=== PATIENT | female | born 1975 | race Caucasian/White ===

== ENCOUNTER 2016-12-12 05:22 | Inpatient (IN) | payer MEDICARE, OTHER ==
--- NOTE | ~2016-12-12 | CT4 ---
[facility] A Service of [facility] RADIOLOGY TEXT RESULTS PATIENT: ALONDRA HADDAD LOCATION: [facility] 6 : [birth year] UNIT #: [id number] AGE: [address]: Zachariah Hector MD SEX: F ORDER DR: [id number] [facility] [address]. [place], [place] [address] [id number] I MR#: [id number] Acc #: [id number] NAME: ALONDRA HADDAD : 1975 SEX: F STUDY DATE/TIME: 12/12/2016 11:26 UNIT: [facility] ROOM: [facility] STUDY DESCRIPTION: CT Abd and Pelv Wo Cont Attending Physician: Zachariah Hector M.D. Ordering Physician: Zachariah Hector M.D. Primary Care Physician: No Primary Care Physician MEDICAL IMAGING REPORT This report is preliminary unless electronic signature is present EXAM CT abdomen and pelvis. INDICATION Right-sided abdominal pain. Blood in urine. TECHNIQUE CT of the abdomen and pelvis without contrast. Coronal and sagittal reconstructions were obtained. This CT exam was performed with one or more of the following radiation dose reduction techniques: automatic exposure control, adjustment of mA and/or kV according to patient size, and iterative reconstruction. COMPARISON CT abdomen and pelvis dated 06/10/2016. FINDINGS There is some atelectasis in both lung bases. Please correlate for any evidence of a pneumonia. There is no pleural effusion. There are nonobstructing right renal calculi measuring less than 4 mm in diameter. There is severe bilateral renal atrophy. No hydronephrosis or ureteral calculi. There is a benign cyst in the superior left kidney measuring 2.2 cm. Noncontrast evaluation of the remaining solid abdominal organs are within normal limits. The gallbladder is not distended. The bowel is not dilated. The abdominal aorta is normal in caliber. PELVIS: There is trace free pelvic fluid. Bladder is unremarkable. The [facility] A Service of [facility] RADIOLOGY TEXT RESULTS PATIENT: ALONDRA HADDAD LOCATION: [facility] 566-01 : [birth year] UNIT #: [id number] AGE: [address]: Zachariah Hector MD SEX: F ORDER DR: uterus is surgically absent. The ovaries are not clearly identified and may be either atrophic or surgically absent. No enlarged pelvic or inguinal lymph nodes. No acute osseous abnormalities. IMPRESSION 1. Right nephrolithiasis. No hydronephrosis or ureteral calculi. 2. Severe bilateral renal atrophy. 3. Development of bibasilar airspace opacities, most consistent with atelectasis, however, correlate for any evidence of pneumonia. 4. Renal osteodystrophy. 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 This results in focal levoscoliosis of the lumbar spine. Dictated by... Luis Zarco M.D. THIS IS AN ELECTRONICALLY VERIFIED REPORT Luis Zarco M.D. at 12/13/2016 8:00 AM DIMAS/leonel TD: 12/12/2016 17:01 JOB #: [id number] MEDICAL IMAGING REPORT COPY
--- NOTE | ~2016-12-12 | EKG ---
PATIENT: ALONDRA HADDAD UNIT #: [id number] Ventricular Rate: 76 BPM Atrial Rate: 76 BPM P-R Interval: 134 ms QRS Duration: 98 ms Q-T Interval: 438 ms QTC Calculation(Bezet): 492 ms P Friendship: 32 degrees Calculated R Friendship: 7 degrees Calculated T Friendship: 102 degrees Diagnosis Line: Normal sinus rhythm Diagnosis Line: Left ventricular hypertrophy with repolarization Diagnosis Line: abnormality Diagnosis Line: Prolonged QT Diagnosis Line: Abnormal ECG Diagnosis Line: When compared with ECG of 23-NOV-2016 03:49, Diagnosis Line: T wave inversion now evident in Anterior leads Diagnosis Line: Confirmed by OLGA JACOBSEN MD ([id number]) on 12/13/2016 Diagnosis Line: 6:00:40 PM INTERPRETING MD: DELMAR REMY
--- NOTE | ~2016-12-12 | CO ---
Unit #: [id number] #: [id number] Patient: ALONDRA HADDAD [id number] [address] [place], [place] [address] [id number] I MR#: [id number] NAME: ALONDRA HADDAD ROOM: 59144 Age: 41 Sex: F Admission Date: 12/12/2016 : 1975 Attending Physician: Zachariah Hector M.D. Primary Care Physician: No Primary Care Physician Consultation Date: 12/12/2016 CONSULTATION REPORT REASON FOR CONSULTATION Chest pain. HISTORY OF PRESENT ILLNESS The patient is a 41-year-old female known to [facility] from previous admissions. In January of 2016 the patient had a left heart cath that was normal at [facility]. In April of 2016 she did have a Lexiscan that showed small anterolateral ischemia but was likely breast artifact. Also in April of 2016, she did have an echocardiogram, which showed grade 2 diastolic dysfunction, moderate LVH and an EF of 65%. The patient's most recent echo was done on November 14, 2016 and showed an EF of 55% to 60%, moderate LVH and grade 1 diastolic dysfunction. Please note the patient was previously admitted to the hospital November 13, 2016 through November 15, 2016 for hypertension, bronchitis and her endstage renal disease. Past medical history includes endstage renal disease, on hemodialysis secondary to thrombotic thrombocytopenic purpura, hypertension, migraines, anemia, GERD, hiatal hernia, degenerative disk disease, murmur and tobaccoism. Patient presented to the ER with complaints of shortness of air, chest pain and fatigue. The patient states that ever since her hospitalization back in October of 2016 she has felt ill. She states that she felt she was getting worse. She did describe to me that she does have intermittent chest pain that will last 5-10 minutes and will radiate down her left arm. She says she does have some sweats. She also does endorse fever and chills. She also states that sometimes her chest pain is worse with a deep breath. While in the emergency department, the patient has been treated with triple antibiotic therapy for healthcare-associated pneumonia. Her initial troponin was less than 0.05. EKG is essentially unremarkable. Again, cardiology has been consulted for chest pain. PAST MEDICAL HISTORY 1. January 2016, the patient had a normal cardiac catheterization. 2. April 2016, small anterolateral ischemia, likely breast artifact. 3. April 2016, two-D echo showed an EF of 65%, LVH and grade 2 diastolic dysfunction. 4. November 14, 2016, echo showed an EF of 55% to 60%, moderate concentric LVH and grade 1 diastolic dysfunction. 5. Endstage renal disease, on hemodialysis, secondary to thrombotic thrombocytopenic purpura. Unit #: [id number] #: [id number] Patient: ALONDRA HADDAD 6. Hypertension. 7. Migraines. 8. Anemia. 9. GERD. 10. Hiatal hernia. 11. Degenerative disk disease. 12. Tobaccoism. 13. Murmur. PAST SURGICAL HISTORY 1. Surgery for intracranial colloid cyst. 2. Appendectomy. 3. Tonsillectomy. 4. Cholecystectomy. 5. ROXANE-BSO. 6. Multiple left arm surgeries following a fistula, which apparently became nonfunctional. 7. Myringotomy tubes. ALLERGIES Morphine, codeine, IV dye, vancomycin, sulfa, GoLYTELY. HOME MEDICATIONS 1. Benadryl 25 mg p.o. t.i.d. p.r.n. 2. Phenergan 25 mg p.o. q.6 hours p.r.n. 3. Klonopin 1 mg p.o. t.i.d. p.r.n. 4. Coreg 6.25 mg p.o. b.i.d. 5. Catapres 0.2 mg p.o. t.i.d. 6. Hydralazine 50 mg p.o. t.i.d. 7. Reglan 5 mg p.o. t.i.d. 8. Sensipar 30 mg p.o. daily. 9. Lortab 7.5/325 mg 1 tab p.o. q.6 hours p.r.n. pain. 10. Renvela 4 tabs p.o. t.i.d. with meals and p.r.n. 2 tabs. 11. Pepcid 20 mg p.o. b.i.d. FAMILY HISTORY Positive for coronary artery disease, endstage renal failure and hypertension. She states that her father had an NC at the age of 49. SOCIAL HISTORY The patient does endorse tobaccoism that she does smoke 1-2 cigarettes daily and rarely drinks alcohol. She denies any illicit drug use. REVIEW OF SYSTEMS CONSTITUTIONAL: The patient endorses fever, chills and fatigue. HEENT: The patient denies sore throat, ear pain or runny nose. CARDIOVASCULAR: The patient endorses chest pain. Denies irregular rhythm or palpitations. CHEST: The patient endorses shortness of breath. Denies cough or hemoptysis. GI: Denies nausea, vomiting, diarrhea, chronic constipation or hematochezia. ENDOCRINE: The patient denies history of increased thirst or urination. No recent significant weight loss or gain. : Denies dysuria, frequency or hematuria. SKIN: Denies any rashes or lesions. HEMATOLOGIC: Denies any increased bleeding or bruising. MUSCULOSKELETAL: Denies any hot swollen joints. No generalized muscle Unit #: [id number] #: [id number] Patient: STEIMLE,ALONDRA pain. NEUROLOGIC: Denies problems with speech or vision. No frequent severe headache. No numbness, tingling or weakness in any extremity. Denies loss of bowel or bladder control. PHYSICAL EXAMINATION GENERAL: The patient is a 41-year-old female who is currently awake, alert, in no acute distress. VITAL SIGNS: Temperature 98.6, heart rate 75, respirations 16, blood pressure 149/94. HEENT: Head is atraumatic, normocephalic. Pupils are equal, round and reactive. She does have a dysconjugate gaze. No discharge from ears or nares. NECK: Supple. Trachea is midline. Normal carotid upstrokes. CHEST: The patient does have some scattered rhonchi. CARDIOVASCULAR: S1, S2. Regular rate and rhythm. The patient does have a 2/6 systolic murmur. ABDOMEN: Abdomen is soft, nontender, nondistended. Bowel sounds are positive in all 4 quadrants. EXTREMITIES: No clubbing, edema or cyanosis. The patient does have shunts in her left and right upper arms. Right upper arm has positive bruit and thrill. NEUROLOGIC: The patient is alert and oriented x3. She is pleasant and conversant. No focal deficits. Cranial nerves II-XII are intact. DIAGNOSTIC STUDIES LABORATORY RESULTS: Urinalysis shows trace leukocytes and 2+ protein. Sodium 133, potassium 5.9, chloride 99, CO2 20, BUN 68, creatinine 14.9, glucose 94. CBC is pending. Troponin is less than 0.05. Lactic acid and procalcitonin are pending. ASSESSMENT 1. Chest pain, likely atypical with normal coronary in January of 2016. 2. Chronic diastolic CHF with LVEF of 55% to 60%. 3. Systolic murmur. 4. HCAP. Cover gram-positive, gram-negative. 5. Endstage renal disease, on hemodialysis secondary to TTP. 6. Hypertension. 7. Hyperkalemia. 8. Anemia. 9. GERD. 10. Tobaccoism. PLAN I have discussed this case with Dr. Atwood, and at this time we will trend troponin and cardiac enzymes. We will repeat this one more time. Will check an EKG in the a.m. We will also check a TSH and a lipid panel in the morning. Will ask for the patient's two-D echocardiogram from October 2016 to be placed on the chart. At this time will monitor closely. Dr. Atwood is to see the patient. Dictated by... Alejandra Hamilton A.P.R.N. for Scott Atwood M.D. AM/db Unit #: [id number] #: [id number] Patient: ALONDRA HADDAD TD: 12/12/2016 11:53 JOB #: [id number] CONSULTATION REPORT X Alejandra Hamilton APRN X CONSULTATION REPORT
--- NOTE | ~2016-12-12 | CR63 ---
[facility] A Service of [facility] RADIOLOGY TEXT RESULTS PATIENT: ALONDRA HADDAD LOCATION: [facility] [id number] : [birth year] UNIT #: [id number] AGE: [address]: Zachariah Hector MD SEX: F ORDER DR: [id number] [facility] [address] [place], [place] [address] [id number] I MR#: [id number] #: [id number] NAME: ALONDRA HADDAD : 1975 SEX: F STUDY DATE/TIME: 12/12/2016 5:57 UNIT: [facility] ROOM: 45877 STUDY DESCRIPTION: CR Chest 2 View Attending Physician: Zachariah Hector M.D. Ordering Physician: George Cortez Aprn Primary Care Physician: No Primary Care Physician MEDICAL IMAGING REPORT This report is preliminary unless electronic signature is present EXAM Chest x-ray, 12/12. INDICATION Midsternal chest pain since 1:00 a.m. this morning. Left flank pain for 2 days. FINDINGS 2 views of the chest compared to 11/23/2016. Cardiomegaly is stable. There is atelectasis or infiltrate in both bases, left greater than right, and there is a small left effusion. No pneumothorax. IMPRESSION Stable cardiomegaly with new infiltrate or atelectasis in the bases, left greater than right, and a small volume of left pleural fluid. Dictated by... Young Wilson Jr., M.D. THIS IS AN ELECTRONICALLY VERIFIED REPORT Young Wilson Jr., M.D. at 12/12/2016 2:27 PM REZA/leonel TD: 12/12/2016 11:42 JOB #: [id number] MEDICAL IMAGING REPORT COPY
--- NOTE | ~2016-12-12 | HP ---
Unit #: [id number] #: [id number] Patient: ALONDRA HADDAD [id number] [address] [place], [place] [address] [id number] I MR#: [id number] NAME: ALONDRA HADDAD ROOM: 98597 Age: 41 Sex: F Admission Date: 12/12/2016 : 1975 Attending Physician: Zachariah Hector M.D. Primary Care Physician: No Primary Care Physician HISTORY AND PHYSICAL CHIEF COMPLAINT Chest pain and cough and abdominal pain. Kindly note - she mentioned chest pain and cough to the ER physicians and mentioned in the ER note but when I went inside the first thing she complains of is abdominal pain which is bothering her. HISTORY OF PRESENTING ILLNESS The patient is a 41-year-old lady with a past medical history of end stage renal disease on dialysis, hypertension, history of dilated cardiomyopathy, congestive heart failure, presented to the emergency room with a chief complaint of chest pain and abdominal pain. She mentions that she is having cough with production of sputum, greenish color. She mentions she had a couple of sick contacts around. She does not recall if she got her flu shot or not. On (1) coughing, she complains of having chest tightness and also having abdominal pains which started yesterday. Denies having any fevers noted at home. Denies any nausea, vomiting or diarrhea. Denies any change in her medications. She gets dialysis Sunday, Sunday, Sunday and Dr. Parker is her garde manger. In the emergency room, she had initial cardiac enzymes which were negative. Chest x-ray was concerning for infiltrate. She was started on antimicrobials and admitted for further care. PAST MEDICAL HISTORY 1. History of hypertension. 2. End stage renal disease, on dialysis. 3. Cardiac disease including dilated cardiomyopathy per the patient. 4. Remote PE. 5. Cardiac cath at [facility] in January 2006 which showed normal coronary arteries. 6. History of GERD. 7. History of migraine. 8. History of pulmonary hypertension. PAST SURGICAL HISTORY 1. Appendectomy. 2. Tonsillectomy. 3. Cholecystectomy. 4. Total abdominal hysterectomy. 5. Bilateral salpingo-oophorectomy. 6. Multiple surgeries for fistula placement. ALLERGIES Unit #: [id number] #: [id number] Patient: ALONDRA HADDAD Morphine, codeine, IV dye, sulfa, SIDDHARTHA, Stadol. HOME MEDICATIONS 1. Hydralazine 50 mg p.o. three times a day. 2. Reglan 5 mg p.o. three times a day. 3. Sensipar 30 mg p.o. daily. 4. Lortab 7.5/325, one tab p.o. q.6. 5. Renvela four tabs p.o. three times a day. 6. Benadryl 25 mg three times a day. 7. Phenergan 25 q.6 p.r.n. 8. Klonopin 1 mg p.o. three times a day. 9. Coreg 6.25 mg twice a day. 10. Catapres 0.2 mg p.o. three times a day. 11. Pepcid 20 mg twice a day. SOCIAL HISTORY Denies smoking, alcohol, illicit drugs. REVIEW OF SYSTEMS Complete review of systems was done. Negative except for what is mentioned in the HPI. FAMILY HISTORY Coronary artery disease, ESRD and hypertension. PHYSICAL EXAMINATION VITAL SIGNS: Temperature 98.6, pulse rate 72, respiratory rate 20, blood pressure 145/94. GENERAL: The patient is alert and oriented x3, lying in the bed, in no acute distress. HEENT: Normocephalic, atraumatic. No icterus. PERRLA. Extraocular movements intact. NECK: Supple. No JVD. HEART: S1, S2. Regular rate and rhythm. CHEST: Bilateral equal air entry. Bibasilar rhonchi. ABDOMEN: Soft, diffusely tender. Bowel sounds positive. EXTREMITIES: No edema, normal pulses. DIAGNOSTIC STUDIES LABORATORY: Glucose 94, BUN 68, creatinine 14.9, sodium 133, potassium 5.9, chloride 99, bicarb 20. WBC 7.5, hemoglobin 10, platelets 156. IMAGING: Chest x-ray - official reading. Mild plate-like atelectasis both lower lung aguirre. Stable cardiomegaly. No new focal areas of consolidation are seen. ASSESSMENT AND PLAN 1. Chest pain: She does have multiple cardiac risk factors including hypertension and history of documented coronary artery disease. She was a former smoker. Will check serial cardiac enzymes, give her aspirin and nitro and will monitor. If required, will consider cardiac evaluation. 2. Abdominal pain: Will get a CT of the abdomen without contrast and go from there. Will give her p.r.n. analgesics at this point. 3. Pneumonia: Official chest x-ray reading is negative for any infiltrates. Her white cell counts are 7.5. I doubt a pneumonia Unit #: [id number] #: [id number] Patient: ALONDRA HADDAD but, because of the complaint of cough with green sputum, she is started on antimicrobials. Will check a procalcitonin level and, if the procalcitonin level is low, consider stopping the antimicrobials. 4. End stage renal disease, on hemodialysis: Will consult nephrology team to help with dialysis. Kindly note, her potassium is elevated. 5. Hypertension: Continue her home medications and monitor. 6. DVT precautions. Further recommendations per hospital course. Dictated by Jarvis Ivey TD: 12/12/2016 10:47 JOB #: [id number] HISTORY AND PHYSICAL X X HISTORY AND PHYSICAL
--- NOTE | ~2016-12-12 | EKG ---
PATIENT: ALONDRA HADDAD UNIT #: [id number] Ventricular Rate: 70 BPM Atrial Rate: 70 BPM P-R Interval: 146 ms QRS Duration: 100 ms Q-T Interval: 466 ms QTC Calculation(Bezet): 503 ms P Channing: 25 degrees Calculated R Channing: -2 degrees Calculated T Channing: 118 degrees Diagnosis Line: Normal sinus rhythm Diagnosis Line: Moderate voltage criteria for LVH, may be normal Diagnosis Line: variant Diagnosis Line: ST and T wave abnormality, consider lateral ischemia Diagnosis Line: Prolonged QT Diagnosis Line: Abnormal ECG Diagnosis Line: When compared with ECG of 12-DEC-2016 02:07, Diagnosis Line: (unconfirmed) Diagnosis Line: T wave inversion no longer evident in Anterior Diagnosis Line: leads Diagnosis Line: Confirmed by OLGA JACOBSEN MD ([id number]) on 12/13/2016 Diagnosis Line: 6:17:01 PM INTERPRETING MD: DELMAR REMY
--- NOTE | ~2016-12-12 | DS ---
Unit #: [id number] #: [id number] Patient: ALONDRA HADDAD [id number] [address] [place], [place] [address] [id number] I MR#: [id number] NAME: ALONDRA HADDAD ROOM: 566 Age: 41 Sex: F Admission Date: 12/12/2016 : 1975 Discharge Date: 12/14/2016 Attending Physician: Zachariah Hector M.D. Primary Care Physician: Jena Primary Care Physician DISCHARGE SUMMARY CONSULTANTS 1. Dr. Jonathon Messer. 2. Dr. Candido Gentile. CHIEF COMPLAINT Chest pain and abdominal pain. ADMITTING DIAGNOSES 1. Possible healthcare-associated pneumonia. 2. End stage renal disease. 3. Hemodialysis. 4. Chest pain. 5. Abdominal pain. For the diagnosis of chest pain, it is pleuritic in nature. No healthcare-associated pneumonia, for further workup. HISTORY OF PRESENTING ILLNESS The patient is a 41-year-old lady with a past medical history of ESRD and hemodialysis, hypertension, history of dilated cardiomyopathy, congestive heart failure, presented to the emergency room with a chief complaint of chest and abdominal pains. HOSPITAL COURSE She had two sets of cardiac enzymes which were negative. She was seen by cardiology. Cardiology opined that the chest pain is pleuritic in nature and no further workup is warranted at this point. She was started on antimicrobials initially for possible healthcare-associated pneumonia. Her procalcitonin was low. The chest x-ray was suggestive of atelectasis as well as a CT of the abdomen which was showing possible atelectasis on the imaging. Her antimicrobials were stopped. For end stage renal disease, Dr. Messer was consulted. He started her on hemodialysis and she did well on the hemodialysis. For the abdominal pain, we got a CT of the abdomen done which did not show any obvious pathology. She is doing clinically better. She is discharged home in a stable condition. She has been instructed to follow with her primary care as an outpatient. On the day of discharge, her physical examination: VITAL SIGNS - temperature 98.3, pulse rate 80, respiratory rate 18, blood pressure 153/109. The patient is alert and oriented x3, lying in the bed, in no Unit #: [id number] #: [id number] Patient: ALONDRA HADDAD acute distress. HEENT - normocephalic, atraumatic. No icterus. PERRLA. Extraocular muscles intact. NECK is supple. No JVD. HEART - S1, S2. Regular rate and rhythm. CHEST - bilateral equal air entry, clear to auscultation. ABDOMEN - soft, nontender. EXTREMITIES - no edema. Normal pulses. DISCHARGE MEDICATIONS Include: 1. Benadryl 25 mg p.o. three times a day. 2. Phenergan 25 mg q.6 p.r.n. nausea. 3. Klonopin 1 mg p.o. t.i.d. for anxiety. 4. Coreg 6.25 mg p.o. twice a day. 5. Clonidine 0.2 mg p.o. three times a day. 6. Hydralazine 50 mg p.o. three times a day. 7. Pepcid 20 mg twice a day. 8. Reglan 5 mg p.o. three times a day. 9. Sensipar 30 mg p.o. daily. 10. Lortab 7.5/325, one tablet p.o. q.6 p.r.n. for pain. Kindly note - we are not giving any new prescriptions. She will be taking the medications from her primary care. 11. Renagel 3200 mg p.o. three times a day. She was instructed to follow with her primary care in one to two weeks. All the discharge instructions explained in detail to the patient. Total time spent in her care - 35 minutes. Dictated by... Jarvis Ivey/ariela TD: 12/15/2016 10:42 JOB #: [id number] DISCHARGE SUMMARY X X DISCHARGE SUMMARY
[~2016-12-12 05:22] MED LIST: ACETAMINOPHEN500 M7 PO; BENADRYL25 MG PO; BENTYL20 MG PO; CATAPRES0.1 M1 PO; CATAPRES0.3 MG PO; CLARITIN10 M3 PO; CLONIDINE PO; COREG PO; COREG3.125 M1 PO; COREG6.25 MG PO; DIPHENHYDRAMINE50 M1 PO; DOCU SOFT100 M1 PO; EPOGEN10000 U/ML INJ; FAMOTIDINE20 M1 PO; HYDRALAZINE HC100 MG PO; HYDRALAZINE HCL50 MG PO; HYDROCODON-ACE1 EAC5 PO; HYDROCODONE/APA1 T16 PO; KLONOPIN0.5 M2 PO; KLONOPIN0.5 MG PO; LEVAQUIN PO; LEVAQUIN250 MG PO; LISINOPRIL10 MG PO; LOTREL 10-40 M1 EACH PO; METOCLOPRAMIDE H5 MG PO; METOPROLOL SUC100 MG PO; NEXIUM PO; NICOTINE TRANSD21 MG EXT; NORCO1 TAB 10/3 PO; NORVASC10 MG PO; PANTOPRAZOLE SO20 MG PO; PAROXETINE HCL10 MG PO; PEPCID AC20 M2 PO; PHENERGAN25 MG PO; PROMETHAZINE12.5 MG PO; PROTONIX PO; REGLAN10 MG PO; RENAGEL800 MG PO; RENVELA800 MG PO; SENSIPAR30 M1 PO; VITAMIN D1000 UNI1 PO; ZOFRAN ODT4 MG PO; [UNRECOGNIZED DRUG - CODE] IJ
[2016-12-12 06:19] LABS: POC - CKMB <1.0 ng/mL (0.0-7.9); POC - TROPONIN <0.05 ng/mL (<=0.05)
[2016-12-12 07:14] LABS: URINE SOURCE CATH
[2016-12-12 07:21] LABS: URINE APPEARANCE CLEAR; URINE BILIRUBIN NEG (NEG); URINE BLOOD NEG (NEG); URINE COLOR YELLOW; URINE GLUCOSE NEG (NEG); URINE KETONE NEG (NEG); URINE LEUKOCYTE ESTERASE TRACE (NEG); URINE NITRATE NEG (NEG); URINE PH 7.5 (5-8); URINE PROTEIN 2+ (NEG); URINE SPECIFIC GRAVITY 1.011 (1.003-1.035); URINE UROBILINOGEN 0.2 MG/DL (NEG)
[2016-12-12 07:24] LABS: CULTURE INDICATED? NO; URBCS1 AUWI 0-2 /[HPF] (0-2); URINE BACTERIA AUWI NEG (NEGATIVE); URINE SQUAMOUS EPITHELIAL CELL NONE SEEN /[HPF]
[2016-12-12] MEDS ORDERED: BENADRYL25 M3 PO (08:05)
[2016-12-12] MEDS ORDERED: KLONOPIN1 MG PO (08:06)
[2016-12-12] MEDS ORDERED: PHENERGAN25 M1 PO (08:06)
[2016-12-12] MEDS ORDERED: COREG6.25 M1 PO (08:06)
[2016-12-12] MEDS ORDERED: CLONIDINE PO (08:07)
[2016-12-12] MEDS ORDERED: LORTAB 7.5-3251 EACH PO (08:08)
[2016-12-12] MEDS ORDERED: SENSIPAR30 M1 PO (08:08)
[2016-12-12] MEDS ORDERED: HYDRALAZINE HCL50 MG PO (08:08)
[2016-12-12] MEDS ORDERED: REGLAN5 MG PO (08:08)
[2016-12-12] MEDS ORDERED: PEPCID AC20 M2 PO (08:10)
[2016-12-12] MEDS ORDERED: RENVELA800 MG PO (08:10)
[2016-12-12 08:14] LABS: ALBUMIN SERUM 3.7 g/dL (3.5-5.0); BILIRUBIN, DIRECT 0.1 mg/dL (0.0-0.2); BILIRUBIN,INDIRECT 0.6 mg/dL (0.0-0.9); BILIRUBIN,TOTAL 0.7 mg/dL (0.2-2.0); BUN/CREATININE RATIO 4.56; CREATININE SERUM 14.9 mg/dL (0.6-1.4); GLOM FILT RATE Estimated 2.9 mL/min (>60)
[2016-12-12 08:23] LABS: POTASSIUM 5.9 mmol/L (3.5-5.1)
[2016-12-12 11:13] LABS: BASOPHIL# 0.1 X10e3 (0-0.3); BASOPHIL% 0.8 % (0-2.5); EOSINOPHIL# 0.1 X10e3 (0-0.7); EOSINOPHIL% 1.3 % (0.0-7.0); HEMATOCRIT 37.1 % (35.0-45.0); HEMOGLOBIN 11.8 gm/dL (12.0-16.0); LYMPHOCYTE# 1.1 X10e3 (1.0-3.5); LYMPHOCYTE% 15.4 % (17.0-45.0); MEAN CELL VOLUME 96.3 FL (83-96); MEAN CORPUSCULAR HEMOGLOBIN 30.6 PG (28-34); MEAN CORPUSCULAR HGB CONC 31.7 g/dL (30-36); MEAN PLATELET VOLUME 9.1 FL (6.5-11.5); MONOCYTE# 0.7 X10e3 (0-1.0); MONOCYTE% 9.4 % (3.0-12.0); NEUTROPHIL# 5.2 X10e3 (1.5-7.1); NEUTROPHIL% 73.1 % (40-75); PLATELET COUNT 120 X10e3 (140-420); RED BLOOD COUNT 3.86 X10e (3.90-5.30); RED CELL DISTRIBUTION WIDTH 18.4 % (11.0-15.5); WHITE BLOOD COUNT 7.1 X10e3 (4.0-10.5)
[2016-12-12 11:14] LABS: DIFF IND NO
[2016-12-12 12:38] LABS: MB 1.4 ng/ml
[2016-12-13 06:17] LABS: HEMATOCRIT 39.5 % (35.0-45.0); HEMOGLOBIN 12.8 gm/dL (12.0-16.0); MEAN CELL VOLUME 95.4 FL (83-96); MEAN CORPUSCULAR HEMOGLOBIN 30.9 PG (28-34); MEAN CORPUSCULAR HGB CONC 32.4 g/dL (30-36); MEAN PLATELET VOLUME 8.8 FL (6.5-11.5); RED BLOOD COUNT 4.14 X10e (3.90-5.30); RED CELL DISTRIBUTION WIDTH 18.4 % (11.0-15.5); WHITE BLOOD COUNT 5.3 X10e3 (4.0-10.5)
[2016-12-13 07:20] LABS: BUN/CREATININE RATIO 2.76; GLOM FILT RATE Estimated 6.3 mL/min (>60); POTASSIUM 4.6 mmol/L (3.5-5.1)
[2016-12-13 07:23] LABS: CREATININE SERUM 7.6 mg/dL (0.6-1.4)
[2016-12-14 05:28] LABS: HEMATOCRIT 38.8 % (35.0-45.0); HEMOGLOBIN 12.5 gm/dL (12.0-16.0); MEAN CELL VOLUME 95.6 FL (83-96); MEAN CORPUSCULAR HEMOGLOBIN 30.7 PG (28-34); MEAN CORPUSCULAR HGB CONC 32.1 g/dL (30-36); MEAN PLATELET VOLUME 9.1 FL (6.5-11.5); RED BLOOD COUNT 4.06 X10e (3.90-5.30); RED CELL DISTRIBUTION WIDTH 17.9 % (11.0-15.5); WHITE BLOOD COUNT 5.6 X10e3 (4.0-10.5)
[2016-12-14 06:57] LABS: BUN/CREATININE RATIO 2.81; CREATININE SERUM 6.4 mg/dL (0.6-1.4); GLOM FILT RATE Estimated 7.7 mL/min (>60); POTASSIUM 4.3 mmol/L (3.5-5.1)
== END 2016-12-14 16:47 | disposition home or self-care (01) | DRG 205 ==
LOC: CED 05:22 → CEDOF 07:45 → C5C 15:05
PROVIDERS: Emergency Medicine; Internal Medicine; Internal Medicine Cardiovascular Disease; Nurse Practitioner Family
PROC: 5A1D00Z (ICD-10-PCS; principal; 2016-12-12)
DX: J98.11 Atelectasis (principal); N18.6 End stage renal disease; M31.1 Thrombotic microangiopathy; I13.2 Hypertensive heart and chronic kidney disease with heart failure and with stage 5 chronic kidney disease, or end stage renal disease; E87.2 Acidosis; I42.0 Dilated cardiomyopathy; I50.32 Chronic diastolic (congestive) heart failure; F17.210 Nicotine dependence, cigarettes, uncomplicated; Z99.2 Dependence on renal dialysis; G43.909 Migraine, unspecified, not intractable, without status migrainosus; K21.9 Gastro-esophageal reflux disease without esophagitis; K44.9 Diaphragmatic hernia without obstruction or gangrene; R07.89 Other chest pain; R10.9 Unspecified abdominal pain; E87.5 Hyperkalemia; Z82.49 Family history of ischemic heart disease and other diseases of the circulatory system; Z84.1 Family history of disorders of kidney and ureter; Z88.5 Allergy status to narcotic agent; Z88.2 Allergy status to sulfonamides; Z91.041 Radiographic dye allergy status; I27.2 Other secondary pulmonary hypertension
CPT/HCPCS: 36415; 51701; 71020; 74176; 80048; 80061; 80076; 81003; 82308; 82550; 82553; 83605; 83880; 84443; 84484; 85025; 85027; 87040; 93005; 99285; J0360; J1200; J1956; J2020; J2270; J2405; J2543; J3260

== ENCOUNTER 2017-01-09 18:57 | Inpatient (IN) | payer MEDICARE, OTHER ==
--- NOTE | ~2017-01-09 | NM69 ---
[facility] A Service of [facility] RADIOLOGY TEXT RESULTS PATIENT: ALONDRA HADDAD LOCATION: [facility] 4506-22 : [birth year] UNIT #: [id number] AGE: [address]: Zachariah Hector MD SEX: F ORDER DR: [id number] [facility] [address] [facility]. [place], [place] [address] [id number] I MR#: [id number] Acc #: [id number] NAME: ALONDRA HADDAD : 1975 SEX: F STUDY DATE/TIME: 01/09/2017 22:22 UNIT: C4B ROOM: [facility] STUDY DESCRIPTION: NM Pulm Vent and Perf Attending Physician: Zachariah Hector M.D. Ordering Physician: Aneta Mello M.D. Primary Care Physician: No Primary Care Physician MEDICAL IMAGING REPORT This report is preliminary unless electronic signature is present EXAM Radionuclide ventilation-perfusion lung scan, 01/09/2017 HISTORY A 41-year-old female presenting to the ED this evening with new onset chest pain and shortness of air. She has a reported history of TTP and a past history of pulmonary embolism. DOSE 29 mCi Technetium labeled DTPA inhaled in aerosol. 4.9 mCi Technetium labeled MAA administered intravenously. COMPARISON Ventilation-perfusion lung scan here 08/16/2016. Chest x-ray today. FINDINGS The examination shows a physiologic distribution of tracer throughout both lungs on both perfusion and ventilation images. There is no unmatched perfusion defect to suggest pulmonary embolism. There has been no change since the prior exam. IMPRESSION Normal ventilation-perfusion lung scan. No change since 08/16/2016. Dictated by... Buzz Moy M.D. THIS IS AN ELECTRONICALLY VERIFIED REPORT Buzz Moy M.D. at 01/10/2017 10:05 PM BENITEZW/conchita [facility] A Service of [facility] RADIOLOGY TEXT RESULTS PATIENT: ALONDRA HADDAD LOCATION: [facility] 4506-22 : [birth year] UNIT #: [id number] AGE: [address]: Zachariah Hector MD SEX: F ORDER DR: TD: 01/10/2017 12:45 JOB #: [id number] MEDICAL IMAGING REPORT Page 1 of 1 COPY
--- NOTE | ~2017-01-09 | CR72 ---
[facility] A Service of [facility] & [facility] RADIOLOGY TEXT RESULTS PATIENT: ALONDRA HADDAD LOCATION: [facility]- : [birth year] UNIT #: [id number] AGE: [address]: Zachariah Hector MD SEX: F ORDER DR: [id number] [facility] [address] [place], [place] [address] [id number] I MR#: [id number] Acc #: [id number] NAME: ALONDRA HADDAD : 1975 SEX: F STUDY DATE/TIME: 01/09/2017 20:08 UNIT: [facility] ROOM: [facility] STUDY DESCRIPTION: CR Chest Single View Portable Attending Physician: Zachariah Hector M.D. Ordering Physician: Aneta Mello M.D. Primary Care Physician: Primary Care Physician No MEDICAL IMAGING REPORT This report is preliminary unless electronic signature is present EXAM Chest x-ray portable HISTORY Chest pain. Short of air. Cough FINDINGS A single frontal portable view of the chest, time 20:08 on 01/09/2017 reviewed. Comparison 12/12/2016. Again there is globular cardiac silhouette enlargement which can be a manifestation of dilated cardiomyopathy and/or pericardial effusion. There is some linear air space disease at lung bases unchanged to slightly improved when comparison is made to prior study. There is some improvement in lung volumes. No change in prominence of the vascular markings in general otherwise. No pleural effusion. No pneumothorax. IMPRESSION 1. Again globular cardiomediastinal silhouette enlargement. 2. Redemonstration of linear abnormal parenchymal markings at lung bases. This mild linear air space disease is unchanged to slightly improved with some improvement in lung volumes since prior. No change in the vascular prominence overall. No pleural effusion or pneumothorax. Dictated by... Colette Mcconnell M.D. THIS IS AN ELECTRONICALLY VERIFIED REPORT Colette Mcconnell M.D. at 01/10/2017 12:19 PM CANDIDO/phi [facility] A Service of [facility] & [facility] RADIOLOGY TEXT RESULTS PATIENT: ALONDRA HADDAD LOCATION: [place] [address] : [birth year] UNIT #: [id number] AGE: [address]: Zachariah Hector MD SEX: F ORDER DR: TD: 01/10/2017 11:31 JOB #: [id number] MEDICAL IMAGING REPORT Page 1 of 1 COPY
--- NOTE | ~2017-01-09 | EKG ---
PATIENT: ALONDRA HADDAD UNIT #: [id number] Ventricular Rate: 79 BPM Atrial Rate: 79 BPM P-R Interval: 132 ms QRS Duration: 98 ms Q-T Interval: 434 ms QTC Calculation(Bezet): 497 ms P [place]: 25 degrees Calculated R [place]: -8 degrees Calculated T [place]: 122 degrees Diagnosis Line: Normal sinus rhythm Diagnosis Line: Left ventricular hypertrophy with repolarization Diagnosis Line: abnormality Diagnosis Line: Prolonged QT Diagnosis Line: Abnormal ECG Diagnosis Line: When compared with ECG of 13-DEC-2016 05:47, Diagnosis Line: T wave inversion more evident in Lateral leads Diagnosis Line: Confirmed by ADRIENNE CONTRERAS MD ([id number]) on 01/11/2017 Diagnosis Line: 9:15:31 AM INTERPRETING MD: BEN REMY
--- NOTE | ~2017-01-09 | DS ---
Unit #: [id number] #: [id number] Patient: ALONDRA HADDAD [id number] [address] [place], [place] [address] [id number] I MR#: [id number] NAME: ALONDRA HADDAD ROOM: 45 Age: 41 Sex: F Admission Date: 01/10/2017 : 1975 Discharge Date: 01/14/2017 Attending Physician: Michel Hamilton M.D. Primary Care Physician: Primary Care Physician No DISCHARGE SUMMARY DISCHARGE DIAGNOSES 1. Pyelonephritis. 2. Chronic pain. 3. End-stage renal disease. 4. Hypertension. HOSPITAL COURSE The patient is a 41-year-old female, who presented to the [facility] with a complaint of flank pain. The pain was on the left and was severe. She also complained of significant pyuria and fever. Urinalysis was consistent with urinary tract infection and given her constellation of symptoms, diagnosis of pyelonephritis was made. The patient was initially started on Rocephin, however, cultures have ultimately returned growing ESBL producing E. coli. As a result, the patient's Rocephin was initially changed to Merrem; however, given that the patient cannot receive Merrem at her regularly scheduled dialysis. The patient has been changed to gentamicin with dosing after dialysis per Renal. Given isolation of the organism and resolution of the patient's fever. The patient is being discharged home to continue IV antibiotics and her regularly scheduled dialysis. DISCHARGE MEDICATIONS Benadryl 25 mg p.o. t.i.d. as needed, Phenergan 25 mg p.o. q.6 hours as needed, Klonopin 1 mg p.o. t.i.d. as needed, Coreg 25 mg p.o. b.i.d., Catapres 0.2 mg p.o. t.i.d., hydralazine 50 mg p.o. t.i.d., Pepcid 20 mg p.o. b.i.d., Reglan 5 mg p.o. t.i.d., Sensipar 30 mg daily, Lortab 7.5/325 one p.o. q.6 hours p.r.n., Renvela four tabs p.o. t.i.d. with meals, gentamicin with dialysis as noted above. FOLLOWUP The patient should follow up with her regularly scheduled dialysis. She should see her primary care doctor in 2 weeks. She should follow up with Dr. Messer as needed. Dictated by... Michel Hamilton M.D. CAM/modl Unit #: [id number] #: [id number] Patient: ALONDRA HADDAD TD: 01/15/2017 09:29 JOB #: [id number] DISCHARGE SUMMARY Page 1 of 1 X Michel Hamilton MD X DISCHARGE SUMMARY
--- NOTE | ~2017-01-09 | US77 ---
[facility] RADIOLOGY TEXT RESULTS PATIENT: ALONDRA HADDAD LOCATION: [facility] : [birth year] UNIT #: [id number] AGE: [address]: Zachariah Hector MD SEX: F ORDER DR: [id number] [facility] [address] [place], [place] [address] [id number] I MR#: [id number] Acc #: [id number] NAME: ALONDRA HADDAD : 1975 SEX: F STUDY DATE/TIME: 01/10/2017 8:29 UNIT: C4B ROOM: [facility] STUDY DESCRIPTION: US Kidney Bilateral Complete Attending Physician: Zachariah Hector M.D. Ordering Physician: Sana Jerry M.D. Primary Care Physician: Primary Care Physician No MEDICAL IMAGING REPORT This report is preliminary unless electronic signature is present EXAM Renal ultrasound INDICATION Acute renal failure. BUN 55, creatinine 10.2, GFR 4.5. PROCEDURE Gutierrez-scale and Doppler imaging kidneys and bladder. COMPARISON CT from 12/12/2016 FINDINGS Right kidney poorly defined measuring approximately 8.9 cm. Cortical thinning and diffusely increased echotexture. 2.4 cm cyst in the right kidney. Unremarkable bladder. Left kidney is poorly defined, measures approximately 8.7 cm, has increased echotexture and cortical thinning. There is a 1.7 cm cyst upper pole of the left kidney. No hydronephrosis. The renal calculi in the right kidney on the CT are not well seen on this study. IMPRESSION 1. Renal atrophy and increased echotexture in keeping with changes of chronic renal disease. 2. No hydronephrosis. 3. Bilateral renal cysts. 4. Calculi in the right kidney shown on the recent CT are not clearly seen on this ultrasound. Dictated by... Lit Espinoza M.D. [facility] RADIOLOGY TEXT RESULTS PATIENT: ALONDRA HADDAD LOCATION: [facility] : [birth year] UNIT #: [id number] AGE: [address]: Zachariah Hector MD SEX: F ORDER DR: THIS IS AN ELECTRONICALLY VERIFIED REPORT Lit Espinoza M.D. at 01/12/2017 7:14 AM [place] TD: 01/10/2017 14:40 JOB #: [id number] MEDICAL IMAGING REPORT Page 1 of 1 COPY
--- NOTE | ~2017-01-09 | HP ---
Unit #: [id number] #: [id number] Patient: ALONDRA HADDAD [id number] [address] [place], [place] [address] [id number] I MR#: [id number] NAME: ALONDRA HADDAD ROOM: 45 Age: 41 Sex: F Admission Date: 01/10/2017 : 1975 Attending Physician: Sana Jerry M.D. Primary Care Physician: No Primary Care Physician HISTORY AND PHYSICAL CHIEF COMPLAINT Left-sided pyelonephritis. HISTORY This 41-year-old female with end stage renal failure after developing TTP on dialysis, hypertension, was admitted for pyelonephritis. The patient states that she was well until recently when she developed dysuria, cloudy urine with a small amount of hematuria and fevers. Yesterday morning developed nausea, vomiting, diarrhea, and increasing left flank pain. She presented to this emergency department last evening with a low grade fever. She has significant pyuria on urinalysis. In the ER she was given aspirin, Rocephin, Zofran, hydralazine, labetalol, Dilaudid, Benadryl, and Phenergan. Apparently she complained of some earlier chest discomfort and V/Q scan is negative. She did have a cardiac catheterization recently showing normal coronary arteries. PAST MEDICAL HISTORY 1. Hypertension with previous admissions for accelerated hypertension. 2. Chronic anemia. 3. End stage renal failure on hemodialysis after developing TTP six years ago. She receives dialysis Sunday, Sunday, and Sunday through a right arm fistula and was followed by Dr. Sage. 4. Hypertension. 5. Remote pulmonary embolus. 6. Cardiac catheterization, 01/2016, at [facility] showing normal coronary arteries. Last echo, 10/2016, at this facility showed normal ejection fraction, LVH, impaired relaxation with a mild diastolic dysfunction. 7. GERD with hiatal hernia. 8. Migraine headaches. 9. Pulmonary hypertension. 10. Surgery for an intracranial colloid cyst. 11. Appendectomy. 12. Tonsillectomy. 13. Cholecystectomy. 14. Total abdominal hysterectomy and BSO. 15. Multiple left arm surgeries following a fistula, which became nonfunctional. 16. Myringotomy tubes. ALLERGIES Morphine, codeine, IV dye, vancomycin, sulfa, SIDDHARTHA inhibitor, and Stadol. Unit #: [id number] #: [id number] Patient: ALONDRA HADDAD HOME MEDICATIONS Benadryl 25 mg t.i.d.; Phenergan 25 mg q.6 hours as needed; Klonopin 1 mg t.i.d.; Coreg 6.25 mg b.i.d.; clonidine 0.2 mg t.i.d.; hydralazine 50 mg t.i.d.; Pepcid 20 mg b.i.d.; Reglan 5 mg t.i.d.; Sensipar 30 mg daily; Lortab p.r.n.; Renagel 3200 mg t.i.d. FAMILY HISTORY CAD, renal failure, hypertension. SOCIAL HISTORY The patient lives with her daughter and family. She smokes one cigarette daily. She does not drink alcohol or use illicit drugs. REVIEW OF SYSTEMS Notable for dysuria, fever, nausea, vomiting, diarrhea, left flank pain, renal failure, hypertension, anemia, GERD, migraine headaches, chest pain, pulmonary hypertension, above mentioned surgeries. All other systems were reviewed and are otherwise negative. PHYSICAL EXAMINATION GENERAL: 41-year-old female current in no acute distress. VITAL SIGNS: Temperature 99.1, pulse 79, respirations 14, blood pressure 162/102, O2 saturation is 90% on room air. HEENT: Eyes - PERRLA. Disconjugate gaze noted. Pharynx benign. Dry mucosal membranes. NECK: Supple without adenopathy or thyromegaly. CHEST: Clear. BACK: With left CVA percussion tenderness. CARDIAC: Normal S1 and S2 without S3, S4 or murmur. ABDOMEN: Bowel sounds are present. Generalized abdominal tenderness but mainly left lower quadrant without rebound or guarding. No hepatosplenomegaly or masses. EXTREMITIES: Without clubbing, cyanosis or edema. Pedal pulses are present. NEUROLOGIC: Patient is awake, alert, and oriented. Cranial nerves are intact. Equal strength throughout. DIAGNOSTIC STUDIES ADMISSION LABS: Hematocrit is 38.3, normal white count, platelet count is 123, coags normal. SMA 12 - BUN 50, creatinine 9.5, lactic acid normal. Cardiac markers negative. Urinalysis - positive leukocyte esterase with 10-25 red cells, enumerable white cells, 4+ bacteria. IMAGING STUDIES: Chest x-ray - cardiomegaly. V/Q scan negative. CARDIOLOGY STUDIES: EKG - sinus rhythm rate 80 with T wave inversions 1, AVL, and V5 through V6. ASSESSMENT 1. Left-sided pyelonephritis. 2. End stage renal failure, hemodialysis Sunday, Sunday and Sunday. 3. Hypertension. 4. History of TTP. 5. Normal coronary arteries and cardiac catheterization. 6. Pulmonary hypertension. Unit #: [id number] #: [id number] Patient: ALONDRA HADDAD PLANS 1. Rocephin and also give two doses of Zyvox pending cultures. 2. Renal ultrasound. 3. SCDs for DVT prophylaxis. 4. Supportive treatment. 5. Nephrology consultation. Dictated by Sana Jerry M.D. DOMO/ts TD: 01/10/2017 05:20 JOB #: [id number] HISTORY AND PHYSICAL Page 1 of 1 X Sana Jerry MD X HISTORY AND PHYSICAL
[~2017-01-09 18:57] MED LIST changes: +BENADRYL25 M3 PO; +COREG6.25 M1 PO; +KLONOPIN1 MG PO; +LORTAB 7.5-3251 EACH PO; +PHENERGAN25 M1 PO; +REGLAN5 MG PO
[2017-01-09 20:29] LABS: BASOPHIL# 0.1 X10e3 (0-0.3); BASOPHIL% 0.8 % (0-2.5); EOSINOPHIL# 0.1 X10e3 (0-0.7); EOSINOPHIL% 1.8 % (0.0-7.0); HEMATOCRIT 38.3 % (35.0-45.0); LYMPHOCYTE# 1.4 X10e3 (1.0-3.5); LYMPHOCYTE% 20.2 % (17.0-45.0); MEAN CELL VOLUME 91.9 FL (83-96); MEAN CORPUSCULAR HEMOGLOBIN 28.8 PG (28-34); MEAN CORPUSCULAR HGB CONC 31.3 g/dL (30-36); MONOCYTE# 0.5 X10e3 (0-1.0); MONOCYTE% 7.7 % (3.0-12.0); NEUTROPHIL# 4.9 X10e3 (1.5-7.1); NEUTROPHIL% 69.5 % (40-75); PLATELET COUNT 123 X10e3 (140-420); RED BLOOD COUNT 4.17 X10e (3.90-5.30); RED CELL DISTRIBUTION WIDTH 18.9 % (11.0-15.5); WHITE BLOOD COUNT 7.1 X10e3 (4.0-10.5)
[2017-01-09 20:39] LABS: DIFF IND NO
[2017-01-09 20:48] LABS: ALBUMIN SERUM 3.7 g/dL (3.5-5.0); BILIRUBIN, DIRECT 0.1 mg/dL (0.0-0.2); BILIRUBIN,INDIRECT 0.3 mg/dL (0.0-0.9); BILIRUBIN,TOTAL 0.4 mg/dL (0.2-2.0); BUN/CREATININE RATIO 5.26; CALCIUM SERUM 9.2 mg/dL (8.4-10.2); CREATININE SERUM 9.5 mg/dL (0.6-1.4); GLOM FILT RATE Estimated 4.9 mL/min (>60); POTASSIUM 4.9 mmol/L (3.5-5.1); PROTEIN TOTAL SERUM 7.4 g/dL (6.0-8.3)
[2017-01-09 21:29] LABS: URINE SOURCE CLEAN CATCH
[2017-01-09 21:33] LABS: URINE APPEARANCE TURBID; URINE BILIRUBIN NEG (NEG); URINE BLOOD TRACE (NEG); URINE COLOR YELLOW; URINE GLUCOSE NEG (NEG); URINE KETONE NEG (NEG); URINE LEUKOCYTE ESTERASE 3+ (NEG); URINE NITRATE NEG (NEG); URINE PH 8.5 (5-8); URINE PROTEIN 2+ (NEG); URINE SPECIFIC GRAVITY 1.012 (1.003-1.035); URINE UROBILINOGEN 0.2 MG/DL (NEG)
[2017-01-09 21:35] LABS: CULTURE INDICATED? YES; URINE BACTERIA AUWI 4+ (NEGATIVE); URINE SQUAMOUS EPITHELIAL CELL OCC /[HPF]; UWBCS1 AUWI INNUM (0-5)
[2017-01-09 21:55] LABS: PARTIAL THROMBOPLASTIN TIME 25.7 SECONDS (23.5-31.3); PROTHROMBIN TIME (PATIENT) 10.8 SECONDS (9.6-11.5)
[2017-01-09 21:59] LABS: POC - CKMB <1.0 ng/mL (0.0-7.9); POC - TROPONIN <0.05 ng/mL (<=0.05)
[2017-01-09 21:59] LABS: INFLUENZA A NEG (NEG); INFLUENZA B NEG (NEG)
[2017-01-10 05:54] LABS: BASOPHIL% 0.8 % (0-2.5); EOSINOPHIL# 0.1 X10e3 (0-0.7); EOSINOPHIL% 1.7 % (0.0-7.0); HEMATOCRIT 35.4 % (35.0-45.0); LYMPHOCYTE# 1.4 X10e3 (1.0-3.5); LYMPHOCYTE% 21.8 % (17.0-45.0); MEAN CORPUSCULAR HGB CONC 31.2 g/dL (30-36); MEAN PLATELET VOLUME 9.1 FL (6.5-11.5); MONOCYTE# 0.5 X10e3 (0-1.0); MONOCYTE% 7.6 % (3.0-12.0); NEUTROPHIL# 4.3 X10e3 (1.5-7.1); NEUTROPHIL% 68.1 % (40-75); PLATELET COUNT 109 X10e3 (140-420); RED BLOOD COUNT 3.81 X10e (3.90-5.30); RED CELL DISTRIBUTION WIDTH 18.5 % (11.0-15.5); WHITE BLOOD COUNT 6.2 X10e3 (4.0-10.5)
[2017-01-10 06:02] LABS: DIFF IND NO
[2017-01-10 06:22] LABS: BUN/CREATININE RATIO 5.39; CREATININE SERUM 10.2 mg/dL (0.6-1.4); GLOM FILT RATE Estimated 4.5 mL/min (>60); POTASSIUM 4.6 mmol/L (3.5-5.1)
[2017-01-11 04:43] LABS: BASOPHIL% 0.7 % (0-2.5); EOSINOPHIL# 0.1 X10e3 (0-0.7); EOSINOPHIL% 1.3 % (0.0-7.0); HEMATOCRIT 37.8 % (35.0-45.0); HEMOGLOBIN 11.6 gm/dL (12.0-16.0); LYMPHOCYTE# 1.2 X10e3 (1.0-3.5); MEAN CELL VOLUME 93.3 FL (83-96); MEAN CORPUSCULAR HEMOGLOBIN 28.7 PG (28-34); MEAN CORPUSCULAR HGB CONC 30.7 g/dL (30-36); MONOCYTE# 0.6 X10e3 (0-1.0); MONOCYTE% 8.6 % (3.0-12.0); NEUTROPHIL# 4.6 X10e3 (1.5-7.1); NEUTROPHIL% 71.4 % (40-75); PLATELET COUNT 115 X10e3 (140-420); RED BLOOD COUNT 4.05 X10e (3.90-5.30); RED CELL DISTRIBUTION WIDTH 18.6 % (11.0-15.5); WHITE BLOOD COUNT 6.5 X10e3 (4.0-10.5)
[2017-01-11 04:49] LABS: DIFF IND NO
[2017-01-11 05:49] LABS: CALCIUM SERUM 8.8 mg/dL (8.4-10.2)
[2017-01-11 05:50] LABS: BUN/CREATININE RATIO 4.64; CREATININE SERUM 7.1 mg/dL (0.6-1.4); GLOM FILT RATE Estimated 6.8 mL/min (>60)
[2017-01-11 05:51] LABS: POTASSIUM 5.8 mmol/L (3.5-5.1)
[2017-01-12 04:19] LABS: BASOPHIL% 0.6 % (0-2.5); DIFF IND NO; EOSINOPHIL# 0.2 X10e3 (0-0.7); EOSINOPHIL% 2.7 % (0.0-7.0); HEMATOCRIT 34.9 % (35.0-45.0); LYMPHOCYTE# 1.5 X10e3 (1.0-3.5); LYMPHOCYTE% 21.2 % (17.0-45.0); MEAN CELL VOLUME 91.8 FL (83-96); MEAN CORPUSCULAR HEMOGLOBIN 28.9 PG (28-34); MEAN CORPUSCULAR HGB CONC 31.5 g/dL (30-36); MEAN PLATELET VOLUME 8.9 FL (6.5-11.5); MONOCYTE# 0.5 X10e3 (0-1.0); MONOCYTE% 7.5 % (3.0-12.0); NEUTROPHIL# 4.9 X10e3 (1.5-7.1); PLATELET COUNT 109 X10e3 (140-420); RED CELL DISTRIBUTION WIDTH 18.5 % (11.0-15.5); WHITE BLOOD COUNT 7.1 X10e3 (4.0-10.5)
[2017-01-12 04:57] LABS: BUN/CREATININE RATIO 5.1; CALCIUM SERUM 8.4 mg/dL (8.4-10.2); CREATININE SERUM 9.4 mg/dL (0.6-1.4); GLOM FILT RATE Estimated 4.7 mL/min (>60); PHOSPHOROUS 5.9 mg/dL (2.5-4.6)
[2017-01-12 04:58] LABS: POTASSIUM 5.6 mmol/L (3.5-5.1)
[2017-01-12 14:26] LABS: HEPATITIS B SURFACE ANTIBODY <5 mIU/mL (>=10)
[2017-01-13 04:02] LABS: BUN/CREATININE RATIO 3.83; GLOM FILT RATE Estimated 8.1 mL/min (>60); MAGNESIUM 1.9 mg/dL (1.6-3.0); PHOSPHOROUS 4.8 mg/dL (2.5-4.6); POTASSIUM 4.6 mmol/L (3.5-5.1)
[2017-01-14 02:29] LABS: BASOPHIL# 0.1 X10e3 (0-0.3); BASOPHIL% 1.2 % (0-2.5); EOSINOPHIL# 0.2 X10e3 (0-0.7); EOSINOPHIL% 4.2 % (0.0-7.0); HEMATOCRIT 35.7 % (35.0-45.0); HEMOGLOBIN 11.1 gm/dL (12.0-16.0); LYMPHOCYTE# 1.2 X10e3 (1.0-3.5); MEAN CELL VOLUME 91.8 FL (83-96); MEAN CORPUSCULAR HEMOGLOBIN 28.6 PG (28-34); MEAN CORPUSCULAR HGB CONC 31.2 g/dL (30-36); MEAN PLATELET VOLUME 9.8 FL (6.5-11.5); MONOCYTE# 0.5 X10e3 (0-1.0); MONOCYTE% 9.4 % (3.0-12.0); NEUTROPHIL# 3.3 X10e3 (1.5-7.1); NEUTROPHIL% 62.2 % (40-75); PLATELET COUNT 101 X10e3 (140-420); RED BLOOD COUNT 3.89 X10e (3.90-5.30); RED CELL DISTRIBUTION WIDTH 17.9 % (11.0-15.5); WHITE BLOOD COUNT 5.4 X10e3 (4.0-10.5)
[2017-01-14 02:30] LABS: DIFF IND NO
[2017-01-14 02:53] LABS: BUN/CREATININE RATIO 4.32; CREATININE SERUM 8.1 mg/dL (0.6-1.4); GLOM FILT RATE Estimated 5.6 mL/min (>60); POTASSIUM 4.8 mmol/L (3.5-5.1)
[2017-01-14] MEDS ORDERED: CARVEDILOL25 MG PO (17:04)
== END 2017-01-14 18:46 | disposition home or self-care (01) | DRG 690 ==
LOC: CED 18:57 → CEDOF 01-10 00:15 → C4B 01-10 01:31
PROVIDERS: Emergency Medicine; Internal Medicine; Internal Medicine Nephrology; Nurse Practitioner
PROC: 02HV33Z Insertion of Infusion Device into Superior Vena Cava, Percutaneous Approach (ICD-10-PCS; principal; 2017-01-10)
PROC: 5A1D60Z (ICD-10-PCS; 2017-01-10)
DX: N12 Tubulo-interstitial nephritis, not specified as acute or chronic (principal); I12.0 Hypertensive chronic kidney disease with stage 5 chronic kidney disease or end stage renal disease; I27.2 Other secondary pulmonary hypertension; N18.6 End stage renal disease; E83.39 Other disorders of phosphorus metabolism; G89.29 Other chronic pain; Z72.0 Tobacco use; Z86.711 Personal history of pulmonary embolism; K21.9 Gastro-esophageal reflux disease without esophagitis; K44.9 Diaphragmatic hernia without obstruction or gangrene; G43.909 Migraine, unspecified, not intractable, without status migrainosus; Z90.49 Acquired absence of other specified parts of digestive tract; Z90.710 Acquired absence of both cervix and uterus; Z82.49 Family history of ischemic heart disease and other diseases of the circulatory system; Z84.1 Family history of disorders of kidney and ureter; E87.5 Hyperkalemia; R19.7 Diarrhea, unspecified; B96.20 Unspecified Escherichia coli [E. coli] as the cause of diseases classified elsewhere
CPT/HCPCS: 36415; 51702; 71010; 76770; 78582; 80048; 80076; 81003; 82553; 83605; 83735; 84100; 84484; 85025; 85610; 85730; 86705; 86706; 87040; 87070; 87086; 87088; 87186; 87205; 87340; 87804; 93005; 96365; 96372; 96375; 99285; A9540; A9567; J0360; J0696; J1170; J1200; J2020; J2185; J2405; J2550

== ENCOUNTER 2017-02-25 00:52 | Observation (INO) | payer MEDICARE, OTHER ==
--- NOTE | ~2017-02-25 | CR72 ---
[facility] A Service of [facility] & [facility] RADIOLOGY TEXT RESULTS PATIENT: ALONDRA HADDAD LOCATION: [facility] : [birth year] UNIT #: [id number] AGE: [address]: Modesto Mas MD SEX: F ORDER DR: [id number] [facility] [address] [place], [place] [address] [id number] E MR#: [id number] Acc #: [id number] NAME: ALONDRA HADDAD : 1975 SEX: F STUDY DATE/TIME: 02/25/2017 1:52 UNIT: [facility] ROOM: STUDY DESCRIPTION: CR Chest Single View Portable Attending Physician: Modesto Mas M.D. Ordering Physician: Modesto Mas M.D. Primary Care Physician: No Primary Care Physician MEDICAL IMAGING REPORT This report is preliminary unless electronic signature is present EXAM Portable chest HISTORY Chest pain onset today, shortness of air COMPARISON 02/20/2017 FINDINGS AP portable view of the chest demonstrates left basilar atelectasis. Probable small amount of right basilar atelectasis. No dense airspace disease or consolidation. Stable cardiomegaly without failure. Upper thoracic scoliosis. No effusions. No pneumothorax. A vascular stent noted in the left axillary region. Dictated by... Israel Flores M.D. THIS IS AN ELECTRONICALLY VERIFIED REPORT Israel Flores M.D. at 02/25/2017 5:55 AM AJ/fabiola TD: 02/25/2017 04:13 JOB #: [id number] MEDICAL IMAGING REPORT Page 1 of 1 COPY
--- NOTE | ~2017-02-25 | CT4 ---
[facility] A Service of [facility] & [facility] RADIOLOGY TEXT RESULTS PATIENT: ALONDRA HADDAD LOCATION: [place] [address] : [birth year] UNIT #: [id number] AGE: [address]: Shiv Medina MD SEX: F ORDER DR: [id number] [facility] [address] [place], [place] [address] [id number] MR#: [id number] Acc #: [id number] NAME: ALONDRA HADDAD : 1975 SEX: F STUDY DATE/TIME: 02/25/2017 5:12 UNIT: [facility] ROOM: STUDY DESCRIPTION: CT Abd and Pelv Wo Cont Attending Physician: Modesto Mas M.D. Ordering Physician: Modesto Mas M.D. Primary Care Physician: Primary Care Physician No MEDICAL IMAGING REPORT This report is preliminary unless electronic signature is present EXAM CT abdomen and pelvis without contrast HISTORY Onset of right-sided chest pain, vomiting. COMPARISON CT abdomen and pelvis 12/12/2016. This CT exam was performed with one or more of the following radiation dose reduction techniques: automatic exposure control, adjustment of mA and/or kV according to patient size, and iterative reconstruction. FINDINGS Axial images form through the abdomen and pelvis without contrast. Multiplanar reconstructed images reviewed at a workstation. The lung bases demonstrates bibasilar atelectasis as well as right middle lobe and lingular atelectasis. No effusions. The liver and spleen are unremarkable. Gallbladder surgically absent. Pancreas and adrenal glands appear normal. There is marked bilateral renal cortical atrophy. Right-sided parenchymal calcifications noted, possibly dystrophic or represent nonobstructing stones. Stomach, small bowel, colon unremarkable except for a few sigmoid diverticular changes. Retroperitoneum unremarkable. Pelvis: Uterus surgically absent. Bladder unremarkable. 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 Extra abdominal soft tissues unremarkable. IMPRESSION 1. No definite acute intraabdominal or intrapelvic pathology. 2. Bibasilar atelectasis. [facility] A Service of [facility] & [facility] RADIOLOGY TEXT RESULTS PATIENT: ALONDRA HADDAD LOCATION: [place] [address] : [birth year] UNIT #: [id number] AGE: [address]: Shiv Medina MD SEX: F ORDER DR: 3. Cardiomegaly and a small pericardial effusion not significantly changed from prior studies of 12/12/2016. 4. 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 Dictated by... Israel Flores M.D. THIS IS AN ELECTRONICALLY VERIFIED REPORT Israel Flores M.D. at 02/25/2017 10:00 PM [place] TD: 02/25/2017 07:14 JOB #: [id number] MEDICAL IMAGING REPORT Page 1 of 1 COPY
--- NOTE | ~2017-02-25 | HP ---
Unit #: [id number] #: [id number] Patient: ALONDRA HADDAD [id number] [address] [place], [place] [address] [id number] I MR#: [id number] NAME: ALONDRA HADDAD ROOM: [facility] Age: 42 Sex: F Admission Date: 02/25/2017 : 1975 Attending Physician: Shiv Medina M.D. Referring Physician: Shiv Medina M.D. Primary Care Physician: No Primary Care Physician HISTORY AND PHYSICAL CHIEF COMPLAINT Chest pain. HISTORY OF PRESENT ILLNESS The patient is a 42-year-old female who basically presents with chest pain. She says that it is retrosternal and started about two days ago, on and off about two days, worse prior to presentation. It is described as retrosternal and when she breathes deeply and it hurts. She denies any cough. No fever or rash. 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 She says she has some abdominal pain as well without diarrhea. She has been nauseous as well. She was seen through the emergency room and evaluated for chest pain. She had some dysuria as well, for which a urinalysis was done. PAST MEDICAL HISTORY 1. Hypertension. 2. Chronic anemia. 3. Endstage renal disease on hemodialysis. 4. TTP. 5. Hypertension. 6. Remote history of pulmonary embolism. 7. Gastroesophageal reflux disease. 8. History of migraine headaches. 9. Pulmonary hypertension. PAST SURGICAL HISTORY 1. Myringotomy tubes. 2. Total abdominal hysterectomy and BSO. 3. Cholecystectomy. 4. Tonsillectomy. 5. Appendectomy. 6. Surgery for intracranial colloid cyst. SOCIAL HISTORY Still smokes a cigarette daily. Denies alcohol use or illicit drug use at this time. FAMILY HISTORY Significant for coronary artery disease and heart failure, hypertension. ALLERGIES Morphine makes her itch. Codeine, IV dye, vancomycin, sulfa, SIDDHARTHA inhibitor and Stadol. Unit #: [id number] #: [id number] Patient: ALONDRA HADDAD HOME MEDICATIONS Not reconciled at this time, but include 1. Benadryl. 2. Phenergan. 3. Klonopin. 4. Catapres. 5. Hydralazine. 6. Reglan. 7. Sensipar. 8. Lortab. 9. Renvela. 10. Pepcid. 11. Coreg. She states that she has been seen by Dr. Lang in the past. REVIEW OF SYSTEMS No calf pain or tenderness. Complete 10-point review of systems has been done and pertinent positives as noted above. PHYSICAL EXAMINATION GENERAL: Comfortable, not in acute distress. VITALS: Blood pressure 153/99, pulse 86, respiratory rate 16, temperature 98.1. HEENT: Pupils are equal and reactive to light and accommodation. NECK: Supple without thyromegaly. CHEST: Breath sounds in her lung bases posteriorly. HEART: First and second heart sounds only. ABDOMEN: Full, respirations soft, no area of reproducible tenderness, however. RECTAL: Deferred. EXTREMITIES: AV fistula in the right upper extremity. In her left lower extremity she had an IV access in place. Now bilateral 1+ lower extremity edema. Without peripheral lymphadenopathy that I could appreciated. NEUROLOGIC: Cranial nerves II through XII grossly intact. Alert and oriented times three. She had a normal gait. Moving all limbs spontaneously. SKIN: Warm and dry with no rashes. LYMPHATICS: Peripheral lymphadenopathy that I could appreciate. PSYCHIATRIC: Does not seem to respond to external stimuli. DIAGNOSTIC STUDIES LABORATORY: Chemistry, glucose 124, BUN 46, creatinine 9.1, sodium 133, potassium 4.1, chloride 93, calcium 9.4. White blood cell count 6.8, hemoglobin 12.0, hematocrit 37.9, platelet count 143. Urinalysis showed leukocyte esterase 3+, protein 3+, urobilinogen 1, blood 2+, innumerable WBCs. CARDIOVASCULAR: EKG showed normal sinus rhythm with left ventricular hypertrophy. Ventricular rate of 84 beats per minute. No ischemic changes. ASSESSMENT/PLAN 1. Chest pain. Likely pleuritic from description. However, in light of her history will get two sets of cardiac enzymes and give the patient something for pain. 2. Dysarthria (1) . She had a chest x-ray which showed no dense airspace disease. Probably a small amount on the right basilar Unit #: [id number] #: [id number] Patient: STEIMLE,ALONDRA atelectasis or left basilar atelectasis. CT of her abdomen and pelvis showed no definite acute intraabdominal or intrapelvic pathology, but it did bibasilar atelectasis, cardiomegaly and some levoscoliosis. She did have a CT scan of the head which showed evidence of postoperative changes from old right frontoparietal craniotomy. 3. Abdominal pain. CT scans are negative. Exact etiology is unknown at this time. This may be related to bowel motion. Will manage conservatively. She had amylase and lipase very marginally elevated. Lipase marginally elevated at 66. Will put her on fluids to see how this resolves over the next day or two. 4. ESRD. She is established with nephrology, so will consult nephrology. 5. Nausea. Will give the patient antiemetic. 6. Possible urinary tract infection. Cultures are pending at this time. Put her on Rocephin 1 g daily. 7. Smoker. Counseled on smoking cessation today. 8. Code status: Full code. Dictated by Jarvis Deng/preston TD: 02/25/2017 08:49 JOB #: [id number] HISTORY AND PHYSICAL Page 1 of 1 X Shiv Medina MD X HISTORY AND PHYSICAL
--- NOTE | ~2017-02-25 | DS ---
Unit #: [id number] #: [id number] Patient: ALONDRA HADDAD [id number] [address] [place], [place] [address] [id number] I MR#: [id number] NAME: ALONDRA HADDAD ROOM: [facility] Age: 42 Sex: F Admission Date: 02/25/2017 : 1975 Discharge Date: 02/28/2017 Attending Physician: Zachariah Hector M.D. Referring Physician: Shiv Medina M.D. Primary Care Physician: Jena Primary Care Physician DISCHARGE SUMMARY ADMITTING DIAGNOSIS Chest pain. OTHER DIAGNOSES 1. Chest pain possibly noncardiac. 2. ESRD on hemodialysis. 3. Hypertension. 4. 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 5. History of hypertension. 6. Migraines. 7. Anemia. 8. GERD. 9. She had a normal cardiac cath in 2005, January, and Cardiolite stress test in April 2016 essentially normal. CONSULTANTS 1. Dr. Robbin Messer. 2. Dr. Candido Gentile. HISTORY OF PRESENTING ILLNESS Patient is a 42-year-old lady who is known to [facility] from previous admissions and history of ESRD on hemodialysis. Presented to the emergency room on the with a chief complaint of left-sided chest pain. She described the pain as sharp, which is getting aggravated with inspiration. She had negative cardiac enzymes. She was seen by cardiology and they recommended no further workup at this point. She also had a urinary tract infection with Enterococcus, which came back as vanc. resistant Enterococcus. For dialysis, she was seen by nephrology team and she had dialysis. Blood pressure was stable. She was doing clinically better. Today, I spoke with Dr. Messer, and she was dialyzed today and he said he is okay to discharge her to the dialysis. I spoke with Dr. Gentile, cardiology, and he said that the pain is atypical in nature and no further workup is indicated at this point. I spoke with the patient and she is agreeable with the plan. She wants to go home. Will request her to follow up with her primary care as an outpatient. PHYSICAL EXAMINATION On the day of the discharged, physical examination: VITAL SIGNS: Temperature 97.5, pulse rate 74, respirations 18, and blood pressure 95/56. GENERAL APPEARANCE: Patient is alert and oriented x3, lying on the bed in no acute distress. HEENT: Normocephalic and atraumatic. No icterus. PERRLA. Extraocular muscles are intact. Unit #: [id number] #: [id number] Patient: ALONDRA HADDAD NECK: Supple. No JVD. HEART: S1 and S2. Regular rate and rhythm. CHEST: Bilateral equal air entry. Clear to auscultation. ABDOMEN: Soft and nontender. EXTREMITIES: No edema. Normal pulses. DISCHARGE MEDICATIONS Her discharge medications include: 1. Zyvox 600 mg p.o. twice a day. I am asking the caseworker protective services to check for the coverage for the Zyvox and try to see if she can help with the medication. Rest of the medications include: 2. Benadryl 25 mg q.8 p.r.n. itching. 3. Phenergan 25 q.6 p.r.n. nausea. 4. KlonoPIN 1 mg t.i.d. for anxiety. Kindly note I am not given her any new prescriptions. She will get them from primary care. 5. Coreg 25 mg twice a day. 6. Clonidine 0.2 mg 3 times a day. 7. Hydralazine 50 mg 3 times a day. 8. Pepcid 20 mg daily. 9. Reglan 5 mg 3 times a day. 10. Sensipar 30 mg daily. 11. Ibuprofen 600 mg 3 times a day p.r.n. for pain. 12. Lortab 7.5/325 one tab p.o. q.6 p.r.n. for pain. 13. Renvela 4 tabs p.o. t.i.d. with meals. 14. Protonix 40 mg daily. 15. Imdur 30 mg daily. All the discharge instructions were explained in detail to the patient. TOTAL TIME SPENT IN HER CARE Thirty-five minutes. Dictated by.Jarvis Sales TD: 02/28/2017 14:11 JOB #: [id number] DISCHARGE SUMMARY Page 1 of 1 X X DISCHARGE SUMMARY
--- NOTE | ~2017-02-25 | CR63 ---
[facility] A Service of [facility] RADIOLOGY TEXT RESULTS PATIENT: ALONDRA HADDAD LOCATION: [place] [address] : [birth year] UNIT #: [id number] AGE: [address]: Zachariah Hector MD SEX: F ORDER DR: [id number] [facility] [address] [facility]. [place], [place] [address] [id number] I MR#: [id number] Acc #: [id number] NAME: ALONDRA HADDAD : 1975 SEX: F STUDY DATE/TIME: 02/26/2017 7:07 UNIT: [facility] ROOM: [facility] STUDY DESCRIPTION: CR Chest 2 View Attending Physician: Zachariah Hector M.D. Referring Physician: Shiv Medina M.D. Ordering Physician: Shiv Medina M.D. Primary Care Physician: Primary Care Physician No MEDICAL IMAGING REPORT This report is preliminary unless electronic signature is present EXAM PA and lateral chest INDICTIONS Chest and shortness of breath since admission yesterday. Comparison with yesterday. FINDINGS There is increased atelectasis or consolidation in the right base. Stable atelectasis left base. Stable cardiomegaly. IMPRESSION Increased atelectasis or consolidation in the right base. Dictated by... Xavier Flores M.D. THIS IS AN ELECTRONICALLY VERIFIED REPORT Xavier Flores M.D. at 02/26/2017 5:01 PM SHRUTHI/robert TD: 02/26/2017 10:11 JOB #: [id number] MEDICAL IMAGING REPORT Page 1 of 1 COPY
--- NOTE | ~2017-02-25 | EKG ---
PATIENT: ALONDRA HADDAD UNIT #: [id number] Ventricular Rate: 84 BPM Atrial Rate: 84 BPM P-R Interval: 154 ms QRS Duration: 104 ms Q-T Interval: 412 ms QTC Calculation(Bezet): 486 ms P [place]: 12 degrees Calculated R [place]: -14 degrees Calculated T [place]: 115 degrees Diagnosis Line: Normal sinus rhythm Diagnosis Line: Left ventricular hypertrophy with repolarization Diagnosis Line: abnormality Diagnosis Line: Prolonged QT Diagnosis Line: Abnormal ECG Diagnosis Line: When compared with ECG of 09-JAN-2017 16:42, Diagnosis Line: T wave inversion less evident in Lateral leads Diagnosis Line: Confirmed by ADRIENNE CONTRERAS MD ([id number]) on 02/25/2017 Diagnosis Line: 4:10:46 PM INTERPRETING MD: BEN REMY
--- NOTE | ~2017-02-25 | CO ---
Unit #: [id number] #: [id number] Patient: ALONDRA BERG [id number] [address] [place], [place] [address] [id number] I MR#: [id number] NAME: ALONDRA BERG ROOM: [facility] Age: 42 Sex: F Admission Date: 02/25/2017 : 1975 Attending Physician: Shiv Medina M.D. Consultation Date: 02/25/2017 CONSULTATION REPORT REASON FOR CONSULT Management of end-stage renal disease. HISTORY OF PRESENT ILLNESS Ms. Berg is a 42-year-old white female with a past medical history of end-stage renal disease, on hemodialysis Sunday, Sunday, and Sunday under the care of Dr. Parker, who presented to the hospital with chest pain that had been going on for two days. The patient stated that her pain gets worse with inspiration. She reported occasional cough and some fever. Patient denied sick contacts. She had her last dialysis on Sunday with no issues. In the emergency room, CT of the head showed no acute abnormality. A CT of the abdomen and pelvis showed no definite acute intraabdominal process. We were consulted to help with management of her dialysis. Patient denied any shortness of air, and she was saturating 98% on room air. PAST MEDICAL HISTORY 1. End-stage renal disease. 2. Hypertension. 3. Anemia of chronic kidney disease. 4. History of pulmonary hypertension. 5. Remote history of pulmonary emboli. 6. Secondary hyperparathyroidism. PAST SURGICAL HISTORY 1. Cholecystectomy. 2. Tonsillectomy. 3. Appendectomy. 4. Surgery for intracranial colloid cyst. SOCIAL HISTORY Smokes cigarettes daily. Denied drinking or illicit drug abuse. FAMILY HISTORY Negative for end-stage renal disease. ALLERGIES Morphine, codeine, vancomycin, sulfa, SIDDHARTHA inhibitor. HOME MEDICATIONS Reviewed and in the chart. REVIEW OF SYSTEMS A 12-point review of systems was conducted, and they were all negative Unit #: [id number] #: [id number] Patient: ALONDRA BERG except as per History of Present Illness. PHYSICAL EXAMINATION VITAL SIGNS: Blood pressure 150/78, pulse 86, respiratory rate 18, and temperature 98.1. HEENT: Head normocephalic and atraumatic. Pupils equal, round, and reactive to light and accommodation. Extraocular muscles intact. NECK: No JVD, no lymphadenopathy. CHEST: Clear to auscultation bilaterally. HEART: Regular rate and rhythm, S1 and S2 normal. ABDOMEN: Bowel sounds positive. No tenderness, no guarding. EXTREMITIES: AV fistula in the right upper extremity. No edema, no cyanosis, and no clubbing. PSYCHIATRIC: Affect is normal. SKIN: Warm and dry with no rashes. DIAGNOSTIC STUDIES LABORATORY: Sodium 133, potassium 4.1, chloride 93, bicarbonate 24, BUN 46, and creatinine 9.1. ASSESSMENT AND PLAN 1. End-stage renal disease, on hemodialysis Sunday, Sunday, and Sunday. Plan for hemodialysis tomorrow with no heparin. 2. Chest pain, pleuritic type. Management per primary care physician. 3. Anemia of chronic kidney disease. Her last CBC was 12 and no need for Epogen. 4. Abdominal pain. CT of the abdomen negative for any intraabdominal process. 5. Secondary hyperparathyroidism. I would like to thank Dr. Medina for allowing us to take care of this patient. Dictated by... Jarvis Cohn TD: 02/25/2017 15:27 JOB #: [id number] CONSULTATION REPORT Page 1 of 1 X X CONSULTATION REPORT
--- NOTE | ~2017-02-25 | CO ---
Unit #: [id number] #: [id number] Patient: ALONDRA HADDAD [id number] [address] [place], [place] [address] [id number] MR#: [id number] NAME: ALONDRA HADDAD ROOM: [facility] Age: 42 Sex: F Admission Date: 02/25/2017 : 1975 Attending Physician: Zachariah Hector M.D. Primary Care Physician: Jena Primary Care Physician Consultation Date: 02/27/2017 CONSULTATION REPORT REASON FOR CONSULTATION Chest pain. HISTORY OF PRESENT ILLNESS Patient is a 41-year-old female known to [facility] from previous admissions. In January of 2016, the patient had a left heart cath that was normal at [facility]. In April of 2016, she did have a Lexiscan Cardiolite stress test that showed a small anterolateral ischemia, but that was likely breast artifact. Also, in April of 2016, she had an echo that showed grade 2 diastolic dysfunction, moderate LVH, and an EF of 65%. The patient's most recent echo was in October 2016, which showed an EF of 55% to 60%, moderate LVH, and grade I diastolic dysfunction. This patient has had multiple hospital admissions for hypertension, chest pain, and end stage renal disease. Past medical history includes end stage renal disease on hemodialysis secondary to thrombocytic thrombocytopenia purpura, hypertension, migraines, anemia, GERD, hiatal hernia, degenerative disk disease, murmur, and tobaccoism. Patient presented to the emergency department with complaints of chest pain. She described the chest pain as midsternal, intermittent, and sharp. She said the pain lasted for about an hour. According to the patient, it was associated with some mild shortness of breath and mild diaphoresis. She denies fever and chills. She does endorse some abdominal discomfort. She also endorses that her chest pain can be worse with a deep breath. In the emergency department, patient was found to have a urinary tract infection. Cardiology has been consulted for chest pain. Her EKG was unremarkable and her troponins were less than 0.03 x2. PAST MEDICAL HISTORY 1. January 2016, patient had normal cardiac catheterization at [facility]. 2. April 2016, Lexiscan Cardiolite stress test showed small anterolateral ischemia, likely breast artifact. 3. In April 2016, patient had a 2D echocardiogram that showed an ejection fraction of 65%, LVH, and grade 2 diastolic dysfunction. 4. In October 2016, patient had 2D echocardiogram, which showed an ejection fraction of 55% to 60% with moderate concentric LVH and grade 1 diastolic dysfunction. 5. End stage renal disease on hemodialysis secondary to thrombotic Unit #: [id number] #: [id number] Patient: ALONDRA HADDAD thrombocytopenia purpura. 6. Hypertension. 7. Migraines. 8. Anemia. 9. GERD. 10. Hiatal hernia. 11. Degenerative disk disease. 12. Murmur. 13. Tobacco. PAST SURGICAL HISTORY 1. Intracranial colloid cyst. 2. Appendectomy. 3. Tonsillectomy. 4. Cholecystectomy. 5. ROXANE-BSO. 6. Multiple left arm surgeries following fistula placement, which apparently became nonfunctional. 7. Myringotomy tubes. ALLERGIES Include morphine, codeine, IV dye, vancomycin, sulfa, and GoLYTELY. HOME MEDICATIONS 1. Benadryl 25 mg p.o. daily p.r.n. itching. 2. Phenergan 25 mg p.o. daily q.6 hours p.r.n. nausea. 3. KlonoPIN 1 mg p.o. 3 times daily p.r.n. anxiety. 4. Catapres 0.2 mg p.o. t.i.d. 5. Hydralazine 50 mg p.o. t.i.d. 6. Reglan 5 mg p.o. 3 times daily. 7. Sensipar 30 mg p.o. daily. 8. Lortab 7.5/325 mg 1 tab p.o. every 6 hours p.r.n. pain. 9. Renvela 4 tabs p.o. 3 times daily with meals. 10. Pepcid 20 mg p.o. b.i.d. 11. Coreg 25 mg p.o. b.i.d. FAMILY HISTORY Positive for coronary artery disease, end stage renal disease, and hypertension. She states that her father had a myocardial infarction at the age of 49. SOCIAL HISTORY Patient does endorse tobacco and smokes 1 to a few cigarettes daily. She states she rarely drinks alcohol. She denies any illicit drug abuse. REVIEW OF SYSTEMS A 10-point review of systems has been done and is considered otherwise negative unless indicated in the HPI. PHYSICAL EXAMINATION GENERAL APPEARANCE: The patient is a 42-year-old female who is awake, alert, and in no acute distress. VITAL SIGNS: Temperature 98.5, heart rate 70, respirations 16, blood pressure 139/89, and she is oxygenating 100%. HEENT: Head is atraumatic and normocephalic. Pupils are equal, round, and reactive. Extraocular movements are intact. She does have a dysconjugate gaze. No discharge from ears or nares. NECK: Supple. Trachea is midline. Normal carotid upstroke. No JVD. Unit #: [id number] #: [id number] Patient: ALONDRA HADDAD CHEST: Lungs are diminished bilaterally. CARDIOVASCULAR: S1 and S2. Regular rate and rhythm. Patient does have a 2/6 systolic murmur. ABDOMEN: Soft, nontender, and nondistended. Bowel sounds are positive in all four quadrants. EXTREMITIES: No clubbing, edema, or cyanosis. Patient has shunts in her left and right arms. Right arm has a positive bruit and thrill. NEUROLOGIC: Patient is alert and oriented x3. Cranial nerves, II-XII, intact. No focal deficits. DIAGNOSTIC STUDIES LABORATORY: Urinalysis: Positive. Urine culture shows Enterococcus. White blood cells 7.3, hemoglobin 11.9, hematocrit 37.6, and platelets 128. Sodium 134, potassium 5.9, chloride 95, CO2 25, BUN 60, creatinine 3.8, and glucose 101. BUN 86. Troponin is less than 0.03 x2. CARDIOVASCULAR: EKG shows sinus rhythm. ASSESSMENT 1. Chest pain with recent normal cath in January of 2016. 2. Enterococcus UTI. 3. End stage renal disease on hemodialysis secondary to TTP. 4. Hypertension. 5. Chronic anemia. 6. Ejection fraction 55% to 60% per echo in October 2016. 7. Chronic anemia. 8. Murmur. PLAN I have discussed this case with Dr. Atwood. Patient has had a recent normal cardiac catheterization and normal echocardiogram. Patient's cardiac enzymes are negative. Will continue patient on Coreg and Catapres. Will add Imdur. Will cancel the stress test at this time. Will check CMP and mag in the morning. Will check a D-dimer. Dictated by... Alejandra Hamilton A.P.R.N. AM/rajendra TD: 02/27/2017 10:34 JOB #: [id number] CONSULTATION REPORT Page 1 of 1 X Alejandra Hamilton APRN X CONSULTATION REPORT
--- NOTE | ~2017-02-25 | CT71 ---
[facility] A Service of [facility] RADIOLOGY TEXT RESULTS PATIENT: ALONDRA HADDAD LOCATION: [place] : [birth year] UNIT #: [id number] AGE: [address]: Modesto Mas MD SEX: F ORDER DR: [id number] [facility] [address] [facility]. [place], [place] [address] [id number] MR#: [id number] Acc #: [id number] NAME: ALONDRA HADDAD : 1975 SEX: F STUDY DATE/TIME: 02/25/2017 2:22 UNIT: [place] ROOM: STUDY DESCRIPTION: CT Head Wo Contrast Attending Physician: Modesto Mas M.D. Ordering Physician: Modesto Mas M.D. Primary Care Physician: No Primary Care Physician MEDICAL IMAGING REPORT This report is preliminary unless electronic signature is present EXAM Noncontrast head CT. HISTORY Right-sided facial numbness since early this morning. COMPARISON Head CT 08/14/[address] exam was performed with one or more of the following radiation dose reduction techniques: automatic control, adjustment of mA and/or kV according to patient size, and iterative reconstruction. FINDINGS Axial noncontrast imaging of the brain demonstrates mild ventricular asymmetry. No mass, mass effect or midline shift. No hemorrhage or abnormal extraaxial fluid collections. Craniotomy flap is noted over the right frontoparietal region. This is unchanged from prior studies. IMPRESSION No acute intracranial abnormality identified. Postoperative changes are noted from old right frontoparietal craniotomy with mild ventricular asymmetry but unchanged from CT 08/14/2016. Dictated by... Israel Flores M.D. THIS IS AN ELECTRONICALLY VERIFIED REPORT Israel Flores M.D. at 02/25/2017 5:56 AM AJ/sajanr TD: 02/25/2017 04:24 [facility] A Service of [facility] RADIOLOGY TEXT RESULTS PATIENT: ALONDRA HADDAD LOCATION: [facility] #: [id number] : [birth year] UNIT #: [id number] AGE: [address]: Modesto Mas MD SEX: F ORDER DR: JOB #: [id number] MEDICAL IMAGING REPORT Page 1 of 1 COPY
[~2017-02-25 00:52] MED LIST changes: +CARVEDILOL25 MG PO
[2017-02-25 01:52] LABS: BASOPHIL# 0.1 X10e3 (0-0.3); BASOPHIL% 1.5 % (0-2.5); EOSINOPHIL# 0.1 X10e3 (0-0.7); HEMATOCRIT 37.9 % (35.0-45.0); LYMPHOCYTE# 1.9 X10e3 (1.0-3.5); MEAN CELL VOLUME 94.4 FL (83-96); MEAN CORPUSCULAR HGB CONC 31.8 g/dL (30-36); MEAN PLATELET VOLUME 8.9 FL (6.5-11.5); MONOCYTE# 0.7 X10e3 (0-1.0); MONOCYTE% 10.2 % (3.0-12.0); NEUTROPHIL% 58.3 % (40-75); PLATELET COUNT 143 X10e3 (140-420); RED BLOOD COUNT 4.02 X10e (3.90-5.30); RED CELL DISTRIBUTION WIDTH 20.1 % (11.0-15.5); WHITE BLOOD COUNT 6.8 X10e3 (4.0-10.5)
[2017-02-25 01:53] LABS: DIFF IND NO
[2017-02-25 02:06] LABS: PARTIAL THROMBOPLASTIN TIME 20.9 SECONDS (23.5-31.3); PROTHROMBIN TIME (PATIENT) 10.4 SECONDS (9.6-11.5)
[2017-02-25 02:13] LABS: ALBUMIN SERUM 3.9 g/dL (3.5-5.0); ALKALINE PHOSPHATASE 95 U/L (32-92); ALT (SGPT) 18 U/L (10-40); AST (SGOT) 21 U/L (10-42); BILIRUBIN, DIRECT 0.1 mg/dL (0.0-0.2); BILIRUBIN,INDIRECT 0.4 mg/dL (0.0-0.9); BILIRUBIN,TOTAL 0.5 mg/dL (0.2-2.0); BLOOD UREA NITROGEN 46 mg/dL (9-23); BUN/CREATININE RATIO 5.05; CALCIUM SERUM 9.4 mg/dL (8.4-10.2); CARBON DIOXIDE 24 mmol/L (22-31); CHLORIDE 93 mmol/L (100-111); CREATININE SERUM 9.1 mg/dL (0.6-1.4); GLOM FILT RATE Estimated 4.8 mL/min (>60); GLUCOSE FASTING 124 mg/dL (70-110); LIPASE 66 U/L (22-51); POTASSIUM 4.1 mmol/L (3.5-5.1); PROTEIN TOTAL SERUM 7.4 g/dL (6.0-8.3); SODIUM 133 mmol/L (135-145)
[2017-02-25 02:24] LABS: ALCOHOL BLOOD <5 mg/dL (0)
[2017-02-25 02:43] LABS: POC - CKMB <1.0 ng/mL (0.0-7.9); POC - TROPONIN <0.05 ng/mL (<=0.05)
[2017-02-25 04:11] LABS: URINE SOURCE CLEAN CATCH
[2017-02-25 04:20] LABS: URINE APPEARANCE TURBID; URINE BILIRUBIN NEG (NEG); URINE BLOOD 2+ (NEG); URINE COLOR YELLOW; URINE GLUCOSE NEG (NEG); URINE KETONE NEG (NEG); URINE LEUKOCYTE ESTERASE 3+ (NEG); URINE NITRATE NEG (NEG); URINE PROTEIN 3+ (NEG); URINE SPECIFIC GRAVITY 1.014 (1.003-1.035)
[2017-02-25 04:23] LABS: CULTURE INDICATED? YES; URBCS1 AUWI 50-100 /[HPF] (0-2); URINE BACTERIA AUWI 4+ (NEGATIVE); URINE SQUAMOUS EPITHELIAL CELL MANY /[HPF]; UWBCS1 AUWI INNUM (0-5)
[2017-02-25 04:43] LABS: URINE AMORPHOUS SEDIMENT AMORP PHOSPHATES
[2017-02-25 04:44] LABS: AMPHETAMINE NEG (NEG); BARBITURATES NEG (NEG); BENZODIAZEPINES NEG (NEG); COCAINE NEG (NEG); MARIJUANA NEG (NEG); OPIATES POS (NEG); TRICYCLIC ANTIDEPRESSANTS NEG (NEG); U METHADONE NEG (NEG)
[2017-02-25 04:46] LABS: POC - CKMB <1.0 ng/mL (0.0-7.9); POC - TROPONIN <0.05 ng/mL (<=0.05)
[2017-02-25 11:08] LABS: CK TOTAL 31 IU/L (26-140)
[2017-02-25 16:30] LABS: CK TOTAL 30 IU/L (26-140)
[2017-02-26 06:18] LABS: HEMATOCRIT 37.6 % (35.0-45.0); HEMOGLOBIN 11.9 gm/dL (12.0-16.0); MEAN CELL VOLUME 94.9 FL (83-96); MEAN CORPUSCULAR HEMOGLOBIN 30.1 PG (28-34); MEAN CORPUSCULAR HGB CONC 31.8 g/dL (30-36); RED BLOOD COUNT 3.96 X10e (3.90-5.30); RED CELL DISTRIBUTION WIDTH 20.2 % (11.0-15.5); WHITE BLOOD COUNT 7.3 X10e3 (4.0-10.5)
[2017-02-26 07:37] LABS: BUN/CREATININE RATIO 5.4; CREATININE SERUM 11.1 mg/dL (0.6-1.4); GLOM FILT RATE Estimated 3.8 mL/min (>60)
[2017-02-26 07:38] LABS: CALCIUM SERUM 8.6 mg/dL (8.4-10.2); POTASSIUM 5.9 mmol/L (3.5-5.1)
[2017-02-28] MEDS ORDERED: MOTRIN600 MG PO (17:50)
[2017-02-28] MEDS ORDERED: IMDUR-ER30 M2 PO (17:54)
[2017-02-28] MEDS ORDERED: PROTONIX40 M1 PO (17:56)
[2017-02-28] MEDS ORDERED: MEDROL DOSEPAK4 MG PO (17:57)
[2017-02-28] MEDS ORDERED: ZYVOX600 MG PO (17:59)
== END 2017-02-28 18:45 | disposition home or self-care (01) ==
LOC: CED 00:52 → C5B 06:15 → CEDOF 06:15 → CED 06:30 → C5B 06:30 → CEDOF 06:30 → C5B 08:16
PROVIDERS: Emergency Medicine; Family Medicine
DX: R07.89 Other chest pain (principal); I13.2 Hypertensive heart and chronic kidney disease with heart failure and with stage 5 chronic kidney disease, or end stage renal disease; N18.6 End stage renal disease; I50.30 Unspecified diastolic (congestive) heart failure; D63.1 Anemia in chronic kidney disease; Z99.2 Dependence on renal dialysis; F17.210 Nicotine dependence, cigarettes, uncomplicated; M31.1 Thrombotic microangiopathy; A41.89 Other specified sepsis; N39.0 Urinary tract infection, site not specified; B95.2 Enterococcus as the cause of diseases classified elsewhere; I51.7 Cardiomegaly; J98.11 Atelectasis; J98.4 Other disorders of lung; I31.3 Pericardial effusion (noninflammatory); M41.86 Other forms of scoliosis, lumbar region; K44.9 Diaphragmatic hernia without obstruction or gangrene; K21.9 Gastro-esophageal reflux disease without esophagitis; G43.909 Migraine, unspecified, not intractable, without status migrainosus; Z79.899 Other long term (current) drug therapy; Z82.49 Family history of ischemic heart disease and other diseases of the circulatory system; Z84.1 Family history of disorders of kidney and ureter; Z90.710 Acquired absence of both cervix and uterus; Z90.49 Acquired absence of other specified parts of digestive tract; Z98.890 Other specified postprocedural states; Z88.2 Allergy status to sulfonamides; Z88.1 Allergy status to other antibiotic agents; Z88.5 Allergy status to narcotic agent; Z88.8 Allergy status to other drugs, medicaments and biological substances; Z91.041 Radiographic dye allergy status
CPT/HCPCS: 70450; 71010; 71020; 74176; 80048; 80076; 80307; 81003; 82150; 82550; 82553; 83690; 83880; 84484; 84703; 85025; 85027; 85610; 85730; 87086; 87088; 87186; 93005; 96365; 96372; 96375; 96376; 99285; C9113; G0378; G0480; J0610; J0696; J1170; J2270; J2405; J2550

== ENCOUNTER 2017-04-27 14:52 | Inpatient (IN) | payer MEDICARE, OTHER ==
--- NOTE | ~2017-04-27 | CO ---
Unit #: [id number] #: [id number] Patient: ALONDRA BERG [id number] [address] [place], [place] [address] [id number] I MR#: [id number] NAME: ALONDRA BERG ROOM: 302 Age: 42 Sex: F Admission Date: 04/27/2017 : 1975 Attending Physician: Michel Hamilton M.D. Primary Care Physician: Primary Care Physician No Consultation Date: 04/28/2017 CONSULTATION REPORT REASON FOR CONSULTATION End-stage renal disease and dialysis needs. HISTORY OF PRESENT ILLNESS Ms. Berg is a 42-year-old female, very well known to our service as she gets dialysis at [facility] on Mondays, Wednesdays, and Fridays. She is somewhat regularly comes to the hospital, it looks like she has been here just about every month this year. On this occasion, she had missed dialysis on Sunday and presented to the emergency room instead with some atypical chest pain as well as nausea with suspected urinary tract infection. She also had a headache. Blood pressure was noted to be high. She does have a history of noncompliance with dialysis and with medication in the past. Antibiotics have been started and we did do her dialysis, makeup treatment this morning. She still has a headache, but chest pain seems to be better. Her stomach also seems to be better. She is not running any fever or having any hematuria. PAST MEDICAL HISTORY Significant for end-stage renal disease, hypertension, TTP/HUS, chronic anemia, history of PE in the past, GERD, migraine headaches, and pulmonary hypertension. PAST SURGICAL HISTORY She has had a fistula placed right arm, intracranial cyst removal, appendectomy, tonsillectomy, cholecystectomy, hysterectomy, and ear tubes. CURRENT MEDICATIONS Klonopin 1 mg p.o. t.i.d., Coreg 12.5 mg b.i.d., hydralazine 100 mg t.i.d., Protonix 40 mg a day, clonidine 0.1 mg b.i.d., Sensipar 30 mg a day, Claritin 10 mg a day, meropenem 500 mg IV daily, and linezolid 600 mg IV q.12 and p.r.n. including IV morphine. ALLERGIES She has quoted allergies to iodine, sulfa, codeine, butorphanol which is Stadol and Toradol as well as vancomycin. FAMILY HISTORY Significant for kidney disease in her mother. SOCIAL HISTORY She does smoke. No alcohol or drug abuse reported. She lives with her daughter. REVIEW OF SYSTEMS Unit #: [id number] #: [id number] Patient: ALONDRA BERG A complete 12-point review of systems was completed with the above findings. She does not have any dizziness with the headache. No nosebleed, sore throat, or earache. No palpitations. No cough or hemoptysis. No hematemesis. No bright red blood per rectum or melena. No rash or itching. No flank pain. No night sweats or hot flashes. No intolerance to heat or cold. No bleeding issues. No recent weight changes. Unless otherwise indicated, the review of systems was negative. PHYSICAL EXAMINATION VITAL SIGNS: The patient is afebrile, pulse 87, respiratory rate 16, and blood pressure 185/85 it was 188/127 when she came in and reached a peak yesterday of 242/102. GENERAL: This is a 42-year-old female, feels tired, but in no acute distress. HEENT: Head is atraumatic and normocephalic. Eyes show pale conjunctivae with no scleral icterus. No nasal drainage or nosebleed. Oropharynx is moist. No thrush. NECK: Shows no rigidity. HEART: Regular rate and rhythm with no rub present. She does have a murmur. LUNGS: Clear with no wheezing. Breathing is nonlabored. ABDOMEN: Soft and nontender. Bowel sounds are present. EXTREMITIES: No lower extremity, clubbing, or cyanosis. She does have trace lower extremity edema. SKIN: Without rashes. VASCULAR: She has a right arm fistula in place with good bruit and thrill. NEUROLOGIC: Cranial nerves are grossly intact with no gross motor deficits. LYMPHATIC: There is no neck or cervical lymphadenopathy. PSYCHIATRIC: Mood appears somewhat depressed. DIAGNOSTIC STUDIES LABORATORY RESULTS: Blood culture is negative thus far. Phosphorus was 5.1. Cholesterol okay. Chemistry yesterday afternoon potassium was 3.6, creatinine 8.9. Urinalysis did have leukocyte esterase with positive white blood cells and bacteria. Troponin was negative. CBC showed a normal white count of 6, hemoglobin 8.6, platelet count 152. IMAGING STUDIES: Chest x-ray showed some chronic changes with borderline to mild vascular congestion. ASSESSMENT/PLAN 1. End-stage renal disease. The patient completed dialysis today. She wanted to come off her treatment early, but the nurse was able to talk her into staying on for her full treatment. Her next dialysis will be Sunday and then she will resume her normal Sunday, Sunday, and Sunday schedule. 2. Hypertension. The patient's blood pressure was high when she came in, likely due to noncompliance with medication. Her home medications have been renewed and I have also written some for some extra p.r.n. clonidine as needed. 3. Urinary tract infection with history of multidrug resistant organisms. She is being treated with meropenem and linezolid until we get cultures back. 4. Migraine headache with morphine written p.r.n. 5. Atypical chest pain with troponin is negative. Being followed by Medicine. Unit #: [id number] #: [id number] Patient: ALONDRA BERG 6. Tobacco abuse. The patient was counseled to quit smoking. 7. Nausea and vomiting likely related to headache and/or urinary tract infection and should improve. I would like to thank Dr. Estrada for this consult and the opportunity to participate in evaluation and care of Ms. Berg. Dictated by... Jonathon Messer Jr. MFariha GLASS/rukhsana TD: 04/30/2017 01:26 JOB #: [id number] CONSULTATION REPORT Page 1 of 1 X Jonathon Messer MD X CONSULTATION REPORT
--- NOTE | ~2017-04-27 | CR72 ---
[facility] A Service of [facility] RADIOLOGY TEXT RESULTS PATIENT: ALONDRA HADDAD LOCATION: [facility] : 77 UNIT #: [id number] AGE: [address]: Michel Hamilton MD SEX: F ORDER DR: [id number] [facility] [address] [facility]. [place], [place] [address] [id number] I MR#: [id number] Acc #: [id number] NAME: ALONDRA HADDAD : 1975 SEX: F STUDY DATE/TIME: 04/27/2017 16:34 UNIT: [address] ROOM: [address] [place] [address] DESCRIPTION: CR Chest Single View Portable Attending Physician: Melany Estrada M.D. Ordering Physician: Carloz Howard M.D. Primary Care Physician: No Primary Care Physician MEDICAL IMAGING REPORT This report is preliminary unless electronic signature is present EXAM Portable chest HISTORY Chest pain, cough and congestion beginning yesterday. TECHNIQUE Single view of the chest was obtained and compared with 03/17/2017 FINDINGS Cardiomegaly is noted unchanged. Soft tissue fullness is seen in the right side of the mediastinum adjacent to the trachea. This is unchanged from previous examination. Linear infiltrates are seen in both lower lung aguirre. The upper lung aguirre are clear. Vascular markings are borderline prominent but unchanged from previous exam. IMPRESSION Cardiomegaly with chronic interstitial disease in the lower lung aguirre. Borderline to mild pulmonary vascular congestion is stable since the previous examination. Dictated by... Young Garcia M.D. THIS IS AN ELECTRONICALLY VERIFIED REPORT Young Garcia M.D. at 04/28/2017 11:22 AM DARIUS/conchita TD: 04/28/2017 00:05 JOB #: [id number] [facility] A Service of [facility] & [facility] RADIOLOGY TEXT RESULTS PATIENT: ALONDRA HADDAD LOCATION: [facility] : 77 UNIT #: [id number] AGE: [address]: Michel Hamilton MD SEX: F ORDER DR: MEDICAL IMAGING REPORT Page 1 of 1 COPY
--- NOTE | ~2017-04-27 | EKG ---
PATIENT: ALONDRA HADDAD UNIT #: [id number] Ventricular Rate: 73 BPM Atrial Rate: 73 BPM P-R Interval: 134 ms QRS Duration: 100 ms Q-T Interval: 470 ms QTC Calculation(Bezet): 517 ms P [place]: 31 degrees Calculated R [place]: 8 degrees Calculated T [place]: 103 degrees Diagnosis Line: Normal sinus rhythm Diagnosis Line: Left ventricular hypertrophy with repolarization Diagnosis Line: abnormality Diagnosis Line: Prolonged QT Diagnosis Line: Abnormal ECG Diagnosis Line: When compared with ECG of 25-FEB-2017 01:06, Diagnosis Line: No significant change was found Diagnosis Line: Confirmed by RAF RON MD ([id number]) on Diagnosis Line: 04/27/2017 5:29:03 PM INTERPRETING MD: ASAF REMY
--- NOTE | ~2017-04-27 | DS ---
Unit #: [id number] #: [id number] Patient: ALONDRA HADDAD [id number] [address] [place], [place] [address] [id number] I MR#: [id number] NAME: ALONDRA HADDAD ROOM: 302 Age: 42 Sex: F Admission Date: 04/27/2017 : 1975 Discharge Date: 05/03/2017 Attending Physician: Michel Hamilton M.D. Primary Care Physician: No Primary Care Physician DISCHARGE SUMMARY DISCHARGE DIAGNOSES 1. Atypical chest discomfort in a patient with normal cardiac catheterization in January of 2016 that showed angiographically normal coronary arteries. 2. Chronic pain. 3. Endstage renal disease, on hemodialysis. 4. Acute on chronic urinary tract infection. HISTORY OF PRESENT ILLNESS/HOSPITAL COURSE The patient is a 42-year-old woman with a history significant for endstage renal disease, scheduled for hemodialysis on Mondays, Wednesdays and Fridays, with a history of noncompliance with dialysis and with her medications in the past. Presents to the emergency room with symptoms of atypical chest pain, which was reproducible on palpation, nonexertional. Cardiac consultation was obtained during admission. The patient had cardiac catheterization in January of 2016 that demonstrated normal coronary arteries. During her admission her cardiac enzymes remained normal. Her atypical chest pain was questionable for mild pericarditis. Treatment with NSAIDs was suggested. However, the patient states that she has an allergy to them. However, the patient was able to tolerate aspirin without any adverse reaction. CRP was normal. Plan is to continue low-dose daily aspirin. Also, the patient has a history significant for chronic urinary tract infections with multi-drug resistant organisms. She was initially started on IV antibiotic, which was subsequently discontinued, and the patient was treated with oral fosfomycin. The patient remained afebrile. CRP was normal. Regarding her endstage renal disease, the patient received dialysis during her admission and nephrology consultation. At discharge the patient was afebrile, vitals were stable. No further chest pain. DISCHARGE MEDICATIONS 1. Clonidine 0.1 mg p.o. b.i.d. 2. Hydralazine 100 mg p.o. t.i.d. 3. Sensipar 30 mg p.o. daily. 4. Hydrocodone 7.5/325 mg 1 tablet p.o. q.i.d. p.r.n. 5. Prilosec 40 mg p.o. daily. 6. Paxil 10 mg p.o. daily. 7. Cetirizine 10 mg p.o. daily. 8. Phenergan 25 mg p.o. daily as needed for nausea. 9. Clonazepam 1 mg p.o. t.i.d. 10. Coreg 12.5 mg p.o. b.i.d. Unit #: [id number] #: [id number] Patient: ALONDRA HADDAD 11. Lisinopril 5 mg p.o. q.h.s. 12. Aspirin 81 mg p.o. once daily. DISCHARGE INSTRUCTIONS 1. Patient to follow up with primary care physician. 2. Patient to follow up with nephrology with plan for hemodialysis as outpatient. Dictated by... Jarvis Finnegan/gerson TD: 05/04/2017 16:11 JOB #: [id number] DISCHARGE SUMMARY Page 1 of 1 X Michel Hamilton MD X DISCHARGE SUMMARY
--- NOTE | ~2017-04-27 | HP ---
Unit #: [id number] #: [id number] Patient: ALONDRA HADDAD [id number] [address] [place], [place] [address] [id number] I MR#: [id number] NAME: ALONDRA HADDAD ROOM: 302 Age: 42 Sex: F Admission Date: 04/27/2017 : 1975 Attending Physician: Michel Hamilton M.D. Primary Care Physician: No Primary Care Physician HISTORY AND PHYSICAL CHIEF COMPLAINT Chest pain, abdominal pain, vomiting. HISTORY OF PRESENT ILLNESS The patient is a 42-year-old female with a past medical history of migraine headaches, multi-drug resistant urinary tract infections, end stage renal disease on dialysis, hypertension, chronic anemia, GERD, remote pulmonary embolism, who presented to the emergency department for evaluation of the above. The patient states that she has not been feeling well for about two to three days. Regarding the abdominal pain, she states that has been going on for two to three days. She states it is in the lower abdomen. She describes it as "sharp." She has had five to six bouts of non-bloody emesis within the past 24 hours. She denies any diarrhea. She has had decreased appetite. She also reports burning with urination. Regarding the chest pain, she states that has been going on for a few hours. She states that it feels like "bricks on my chest." It radiates to the neck. She is diaphoretic and nauseous with it. It has been fairly constant. She denies any exacerbating factors. She states that it is alleviated somewhat by lying still. Regarding the migraine headaches, she states that started this morning as well. She describes it as "everywhere." She states it is "sharp." She does have associated photophobia and phonophobia. It is similar to migraines in the past. In the emergency department, initial pulse and blood pressure were 86 and 188/27 respectively. Urinalysis showed findings concerning for urinary tract infection. Chest x-ray shows borderline to mild vascular congestion. She was given Macrobid, Zosyn, Protonix, Reglan and Benadryl in the emergency department. She is being admitted to [facility] for evaluation and further treatment. PAST MEDICAL HISTORY 1. Admission to [facility] February 25 through the 2016, for chest pain. She was seen by cardiology who thought that the chest pain was atypical. They did not recommend further cardiac workup. Per their consultation note, she had a cardiac catheterization in January 2016 at [facility] that was normal. That is per cardiology consultation note dated February 27, 2017. 2. End stage renal disease, on dialysis Sunday, Sunday, Sunday, followed by Dr. Parker. The patient developed end stage renal Unit #: [id number] #: [id number] Patient: ALONDRA HADDAD disease after developing TTP. 3. Hypertension. 4. Migraine headaches. 5. Chronic anemia. 6. GERD. 7. Remote pulmonary embolism. PAST SURGICAL HISTORY 1. Cardiac catheterization January 2016, showed angiographically normal coronary arteries. 2. Surgery for intracranial colloid cyst. 3. Appendectomy. 4. Tonsillectomy. 5. Cholecystectomy. 6. Hysterectomy. 7. Right upper extremity fistula. 8. Myringotomy tubes. SOCIAL HISTORY The patient lives with her daughter. She smokes a few cigarettes daily. She denies alcohol or illicit drug use. FAMILY HISTORY Notable for end stage renal disease. ALLERGIES Iodine, sulfa, Stadol, Toradol, vancomycin. HOME MEDICATIONS 1. Klonopin 1 mg t.i.d. 2. Edwards 7.5/325 four times daily p.r.n. 3. Reglan 5 mg twice daily. 4. Paxil 10 mg daily. 5. Carvedilol 12.5 mg p.o. twice daily. 6. Hydralazine 100 mg t.i.d. 7. Phenergan 25 mg daily. 8. Prilosec 40 mg daily. 9. Clonidine 0.1 mg twice daily. 10. Sensipar 30 mg daily. 11. Zyrtec 10 mg daily. REVIEW OF SYSTEMS A ten point review of systems is negative except as indicated in the HPI. DIAGNOSTIC STUDIES CARDIOVASCULAR: EKG shows normal sinus rhythm with rate of 73 beats/minute. IMAGING: Chest x-ray shows mild vascular prominence. LABORATORY: Complete blood count notable for hemoglobin and hematocrit of 8.6 and 26.9 respectively. Troponin is less than 0.05. Urinalysis notable for 3+ leukocyte esterase, 2+ protein, 100-200 white blood cells, 2+ bacteria. Comprehensive metabolic panel notable for sodium of 133, chloride is 92, glucose is 68, BUN and creatinine 37 and 8.9 respectively. Amylase and Unit #: [id number] #: [id number] Patient: ALONDRA HADDAD lipase are 54 and 60 respectively. PHYSICAL EXAMINATION VITAL SIGNS: Temperature is 98.9, pulse 86, respirations 16, blood pressure 188/127. GENERAL: The patient is an -Trist[place] female who is awake and alert, in no acute distress. HEENT: The head is atraumatic. Mucous membranes are moist. NECK: Supple, trachea is midline. CARDIOVASCULAR: Regular rate and rhythm. LUNGS: Clear to auscultation bilaterally with no increased work of breathing. ABDOMEN: Soft. She is mildly tender to palpation in the suprapubic area. Bowel sounds are present in all four quadrants. EXTREMITIES: Nontender with no pedal edema. The patient does have a right upper extremity fistula with thrill and bruit. NEURO: The patient is awake and alert. She follows commands. PSYCH: Mood and affect are normal. The patient is cooperative. SKIN: Skin of examined areas is warm and dry. ASSESSMENT The patient is a 42-year-old female with: 1. Atypical chest pain: The patient had a cardiac catheterization in January of 2016 that showed angiographically normal coronary arteries. She has seen Dr. Gentile in the past. 2. Migraine headaches. 3. Urinary tract infection: Review of [facility] records shows that the patient has had multi-drug resistant urinary tract infections. February 25, 2017 - she had greater than 100,000 VRE; January 09, 2017 - greater than 100,000 ESBL E. coli. The patient received Zosyn and Macrobid in the emergency department. 4. End stage renal disease, on dialysis Sunday, Sunday, Sunday with last dialysis being April 25, 2017: Chest x-ray is showing mild vascular congestion today. 5. Hypertension. 6. Chronic anemia: The patient's hemoglobin was 11.9 on February 26, 2017. It is 8.6 today. 7. Gastroesophageal reflux disease. 8. Remote pulmonary embolus. 9. Tobacco abuse. PLAN 1. Admit for observation to intermediate level. 2. Advance to clear liquids as tolerated. 3. Fasting lipid panel. 4. Serial cardiac enzymes. 5. Blood cultures x2. 6. Urine culture and sensitivity on urine in the lab. 7. Meropenem IV and Zyvox IV pending urine culture. 8. Consult Dr. Messer regarding end stage renal disease and dialysis. 9. Check magnesium and phosphorus levels. 10. Repeat labs in the morning including magnesium, phosphorus, amylase, lipase. 11. P.r.n. Zofran. 12. SCDs for DVT prophylaxis. 13. Additional workup and consultants based on above. Unit #: [id number] #: [id number] Patient: ALONDRA HADDAD Dictated by Jarvis Angel/ariela TD: 04/28/2017 10:04 JOB #: [id number] HISTORY AND PHYSICAL Page 1 of 1 X Melany Estrada MD X HISTORY AND PHYSICAL
--- NOTE | ~2017-04-27 | EKG ---
PATIENT: ALONDRA HADDAD UNIT #: [id number] Ventricular Rate: 74 BPM Atrial Rate: 74 BPM P-R Interval: 150 ms QRS Duration: 102 ms Q-T Interval: 444 ms QTC Calculation(Bezet): 492 ms P [place]: 17 degrees Calculated R [place]: 65 degrees Calculated T [place]: 61 degrees Diagnosis Line: Normal sinus rhythm Diagnosis Line: Nonspecific ST abnormality Diagnosis Line: Prolonged QT Diagnosis Line: Abnormal ECG Diagnosis Line: When compared with ECG of 02-MAY-2017 17:52, Diagnosis Line: (unconfirmed) Diagnosis Line: No significant change was found Diagnosis Line: Confirmed by RAF RON MD ([id number]) on Diagnosis Line: 05/04/2017 9:02:39 AM INTERPRETING MD: ASAF REMY
--- NOTE | ~2017-04-27 | CR72 ---
[facility] A Service of [facility] RADIOLOGY TEXT RESULTS PATIENT: ALONDRA HADDAD LOCATION: [facility] 302- : [birth year] UNIT #: [id number] AGE: [address]: Michel Hamilton MD SEX: F ORDER DR: [id number] [facility] [address] [facility]. [place], [place] [address] [id number] I MR#: [id number] Acc #: [id number] NAME: ALONDRA HADDAD : 1975 SEX: F STUDY DATE/TIME: 05/02/2017 14:02 UNIT: [address] ROOM: [facility] STUDY DESCRIPTION: CR Chest Single View Portable Attending Physician: Michel Hamilton M.D. Ordering Physician: Michel Hamilton M.D. MEDICAL IMAGING REPORT This report is preliminary unless electronic signature is present EXAM Portable chest HISTORY Chest pain and vomiting, onset today. TECHNIQUE Single view chest was obtained compared with 04/27/2017 FINDINGS Cardiomegaly is again seen. Patchy linear infiltrates are seen in both lung bases. The left lung base is unchanged. There is a little more consolidation on the right since the previous examination and an acute right base infiltrative process is not excluded. The upper lung aguirre are clear and the vascular pattern is normal. No pleural fluid seen. IMPRESSION Bibasilar infiltrates. The left base is unchanged from previous examination. There is more infiltrate at the right lung base. Possible worsening atelectasis or developing pneumonia on the right. STAT * RESULT Dictated by... Young Garcia M.D. THIS IS AN ELECTRONICALLY VERIFIED REPORT Young Garcia M.D. at 05/03/2017 7:30 AM DARIUS/conchita [facility] A Service of [facility] RADIOLOGY TEXT RESULTS PATIENT: ALONDRA HADDAD LOCATION: [facility] 302-01 : [birth year] UNIT #: [id number] AGE: [address]: Michel Hamilton MD SEX: F ORDER DR: TD: 05/02/2017 14:22 JOB #: [id number] MEDICAL IMAGING REPORT Page 1 of 1 COPY
--- NOTE | ~2017-04-27 | CO ---
Unit #: [id number] #: [id number] Patient: ALONDRA BERG [id number] [address] [place], [place] [address] [id number] I MR#: [id number] NAME: ALONDRA BERG ROOM: 302 Age: 42 Sex: F Admission Date: 04/29/2017 : 1975 Attending Physician: Michel Hamilton M.D. Primary Care Physician: No Primary Care Physician CONSULTATION REPORT REASON FOR CONSULTATION REQUEST Chest pain. HISTORY OF PRESENT ILLNESS Ms. Berg is a pleasant 42-year-old patient with chest pain, endstage renal disease, hypertension and chronic pain. She went through dialysis today and developed chest pain. She states that this starts in her chest and radiates to her left arm and is associated with diaphoresis, dyspnea, nausea. She underwent an ECG today, which showed nonspecific ST changes mainly in the lateral leads, slightly exaggerated from the ECG of 04/27/17. Total ST depression is 0.5 mm in these leads. In April 2016 an echo showed EF 65%, moderate LVH and pseudo-normal diastolic dysfunction. A repeat echo October 2016 was unchanged. She undergoes dialysis on a regular basis, has a history of thrombotic thrombocytopenic purpura, hypertension, migraines, tobacco use, which has continued, and degenerative disk disease. She also has anemia. She has not had any PND, orthopnea, syncope or pre-syncope. She states that the pain is slightly worse when she is supine, slightly less when she is upright. PAST MEDICAL HISTORY 1. January 2016, normal cardiac catheterization. 2. Stress test April 2016, breast attenuation artifact small anterolateral area. 3. October 2016, echo. EF 60%, moderate concentric LVH, diastolic dysfunction. 4. Endstage renal disease, hemodialysis 3 times per week. 5. Thrombotic thrombocytopenic purpura. 6. Hypertension. 7. Migraines. 8. Anemia. 9. Tobacco abuse. 10. Degenerative disk disease. 11. GERD. 12. Hiatal hernia. 13. Heart murmur. PAST SURGICAL HISTORY 1. Cholecystectomy. Unit #: [id number] #: [id number] Patient: ALONDRA BERG 2. Tonsillectomy. 3. Appendectomy. 4. Colloid cyst. 5. Left arm surgeries. 6. Ear tubes. ALLERGIES Codeine, morphine, IV dye, vancomycin, sulfa. SOCIAL HISTORY She stated on the consultation to renal a few days ago that she did not smoke. She states to me that she still smokes about 2 cigarettes per day. No alcohol or drug abuse. Lives with her daughter. FAMILY HISTORY Positive for kidney disease in her mother. REVIEW OF SYSTEMS As per history of present illness. Otherwise, as stated below. GENERAL: No recent fever or chills. No recent weight change. ENDOCRINE: Negative for thyroid disease. HEENT: No auditory or visual disturbances. GASTROINTESTINAL: No melena, no hematochezia. RESPIRATORY: Dyspnea on exertion. CARDIOVASCULAR: Chest pains. GENITOURINARY: No dysuria. No back pain suggestive of nephrolithiasis. NEUROLOGIC: Headaches. PSYCHOLOGICAL: No depression. PHYSICAL EXAMINATION GENERAL: Pleasant, no acute distress. She states she wants to leave. VITAL SIGNS: Heart rate is 72 and regular. Respiratory rate is 18. Blood pressure is 109/63. Height 5'3", weight 142 pounds, BMI 26. SKIN: Warm and dry. No xanthelasma. MUSCULOSKELETAL: No missing digits. Moves easily for evaluation. NEUROLOGICAL: Appropriate mood and affect. Alert and oriented x3. HEENT: Pupils equal, round and reactive. No oral cyanosis. No icterus. NECK: Carotids clear to auscultation with no carotid bruits. Normal carotid upstroke bilaterally. Thyroid is normal in size and texture without masses or tenderness. CHEST: Distant lung sounds. CARDIAC: Slight rub heard anterior chest. ABDOMEN: No hepatosplenomegaly, masses or tenderness. Normal bowel sounds. No abdominal bruits heard. EXTREMITIES: No clubbing, cyanosis or edema. Excellent posterior tibial and dorsalis pedis pulses. DIAGNOSTIC EVALUATION CARDIOVASCULAR: I reviewed the ECG, which showed slight ST changes as noted above. EKG is in progress and will be reported upon if done before this dictation. LABORATORY: Creatinine 8.9, potassium 4.6, sodium 133, magnesium 2. Troponins today at 1452 hours was normal, CK also normal. Total cholesterol was 174, triglycerides 60, HDL 45. TSH in November 2016 was 1.08. "White blood count" currently 10, white blood count 6, platelet Unit #: [id number] #: [id number] Patient: ALONDRA BERG count 168,000. Urine positive for protein, blood, white blood cells. It was positive for bacteria in November 2015. IMPRESSION 1. Chest pain, likely small amount of pericarditis with slightly abnormal ECG consistent with LVH, although slightly transient changes. Peak ST depression is 0.5 mm. She states that she wants a cardiac catheterization. She was normal in January 2016 at [facility]. I do not see any need to repeat this. I would give her steroids, Medrol Dosepak since she appears to not be able to take nonsteroidal anti-inflammatory agents. 2. Continued tobacco abuse. 3. Treated hypertension. 4. Chronic pain. 5. Normal ejection fraction with moderate concentric LVH on echo. This likely accounts for the systolic murmur. 6. Chronic diastolic CHF. EF 55% to 60%. 7. Anemia. 8. GERD. RECOMMENDATIONS 1. We will check troponins and ECG as noted. I think the patient could probably go home. 2. Would give the patient a steroid, Medrol Dosepak. 3. Just now the repeat EKG was done. Directly comparing this to the ECG from 1151 hours, ST depression may be slightly less. The changes are noted in leads II, III, AVF, V4-V6. 4. Multiple co-morbidities suggesting higher coronary risk. 5. If primary service decides to watch overnight, we will follow with you. Thanks very much for this challenging consultation. Dictated by... Candido Gentile M.D. SAMANTHA/gerson TD: 05/03/2017 09:05 JOB #: [id number] CONSULTATION REPORT Page 1 of 1 X Candido Gentile MD X CONSULTATION REPORT
--- NOTE | ~2017-04-27 | CR219 ---
[facility] A Service of [facility] & [facility] RADIOLOGY TEXT RESULTS PATIENT: ALONDRA HADDAD LOCATION: [facility] 302- : [birth year] UNIT #: [id number] AGE: [address]: Michel Hamilton MD SEX: F ORDER DR: [id number] [id number] [facility]. [place], [place] [address] [id number] I MR#: [id number] Acc #: [id number] NAME: ALONDRA HADDAD : 1975 SEX: F STUDY DATE/TIME: 05/02/2017 6:03 UNIT: [address] ROOM: [facility] STUDY DESCRIPTION: CR Sacrum and Coccyx Min 2 Vie Attending Physician: Michel Hamilton M.D. Ordering Physician: Michel Hamilton M.D. Primary Care Physician: Primary Care Physician No MEDICAL IMAGING REPORT This report is preliminary unless electronic signature is present EXAM Sacrum and coccyx INDICATION Fall. Low back and tailbone pain. FINDINGS Three views of the sacrum and coccyx without comparison. There is no fracture or subluxation. The sacral arcuate lines are within normal limits. The sacroiliac joints are normal. IMPRESSION No acute findings. Dictated by... Luis Zarco M.D. THIS IS AN ELECTRONICALLY VERIFIED REPORT Luis Zarco M.D. at 05/02/2017 8:02 AM DIMAS/jeffy TD: 05/02/2017 07:23 JOB #: [id number] MEDICAL IMAGING REPORT Page 1 of 1 COPY
--- NOTE | ~2017-04-27 | CR181 ---
[facility] A Service of [facility] & [facility] RADIOLOGY TEXT RESULTS PATIENT: ALONDRA HADDAD LOCATION: [facility] 302-01 : [birth year] UNIT #: [id number] AGE: [address]: Michel Hamilton MD SEX: F ORDER DR: [id number] [id number] [facility]. [place], [place] [address] [id number] I MR#: [id number] Acc #: [id number] NAME: ALONDRA HADDAD : 1975 SEX: F STUDY DATE/TIME: 05/02/2017 6:01 UNIT: [address] ROOM: [facility] STUDY DESCRIPTION: CR Lumbar Spine 2 or 3 Views Attending Physician: Michel Hamilton M.D. Ordering Physician: Michel Hamilton M.D. Primary Care Physician: Primary Care Physician No MEDICAL IMAGING REPORT This report is preliminary unless electronic signature is present EXAM Lumbar spine INDICATION Fall. Low back pain. FINDINGS Three views of the lumbar spine without comparison. There is no acute fracture or subluxation. Vertebral body height and alignment is within normal limits. Patient does have moderate dextroscoliosis with apex at L2-3. Sacroiliac joints are normal. IMPRESSION No acute findings. Levoscoliosis of the lumbar spine. Dictated by... Luis Zarco M.D. THIS IS AN ELECTRONICALLY VERIFIED REPORT Luis Zarco M.D. at 05/02/2017 8:02 AM DIMAS/jeffy TD: 05/02/2017 07:44 JOB #: [id number] MEDICAL IMAGING REPORT Page 1 of 1 COPY
--- NOTE | ~2017-04-27 | EKG ---
PATIENT: ALONDRA HADDAD UNIT #: [id number] Ventricular Rate: 67 BPM Atrial Rate: 67 BPM P-R Interval: 138 ms QRS Duration: 114 ms Q-T Interval: 486 ms QTC Calculation(Bezet): 513 ms P [place]: 29 degrees Calculated R [place]: 38 degrees Calculated T [place]: 75 degrees Diagnosis Line: Normal sinus rhythm Diagnosis Line: Left ventricular hypertrophy with repolarization Diagnosis Line: abnormality Diagnosis Line: Prolonged QT Diagnosis Line: Abnormal ECG Diagnosis Line: When compared with ECG of 27-APR-2017 16:12, Diagnosis Line: No significant change was found Diagnosis Line: Confirmed by COREY LAWTON MD ([id number]) on Diagnosis Line: 05/03/2017 10:37:27 AM INTERPRETING MD: LEIGHANN REMY
--- NOTE | ~2017-04-27 | EKG ---
PATIENT: ALONDRA HADDAD UNIT #: [id number] Ventricular Rate: 68 BPM Atrial Rate: 68 BPM P-R Interval: 130 ms QRS Duration: 104 ms Q-T Interval: 486 ms QTC Calculation(Bezet): 516 ms P [place]: 51 degrees Calculated R [place]: 39 degrees Calculated T [place]: 95 degrees Diagnosis Line: Normal sinus rhythm Diagnosis Line: Voltage criteria for left ventricular hypertrophy Diagnosis Line: T wave abnormality, consider lateral ischemia Diagnosis Line: Prolonged QT Diagnosis Line: Abnormal ECG Diagnosis Line: Diagnosis Line: Confirmed by COREY LAWTON MD ([id number]) on Diagnosis Line: 05/03/2017 10:40:17 AM INTERPRETING MD: LEIGHANN REMY
[~2017-04-27 14:52] MED LIST changes: +IMDUR-ER30 M2 PO; +MEDROL DOSEPAK4 MG PO; +MOTRIN600 MG PO; +PROTONIX40 M1 PO; +ZYVOX600 MG PO
[2017-04-27 16:27] LABS: URINE APPEARANCE CLOUDY; URINE BILIRUBIN NEG (NEG); URINE BLOOD NEG (NEG); URINE COLOR YELLOW; URINE GLUCOSE NEG (NEG); URINE KETONE NEG (NEG); URINE LEUKOCYTE ESTERASE 3+ (NEG); URINE NITRATE NEG (NEG); URINE PH 8.5 (5-8); URINE PROTEIN 2+ (NEG); URINE UROBILINOGEN 0.2 MG/DL (NEG)
[2017-04-27 16:29] LABS: BASOPHIL# 0.1 X10e3 (0-0.3); BASOPHIL% 1.6 % (0-2.5); EOSINOPHIL# 0.1 X10e3 (0-0.7); EOSINOPHIL% 0.8 % (0.0-7.0); HEMATOCRIT 26.9 % (35.0-45.0); HEMOGLOBIN 8.6 gm/dL (12.0-16.0); LYMPHOCYTE% 15.1 % (17.0-45.0); MEAN CORPUSCULAR HEMOGLOBIN 32.1 PG (28-34); MEAN CORPUSCULAR HGB CONC 32.1 g/dL (30-36); MEAN PLATELET VOLUME 8.9 FL (6.5-11.5); MONOCYTE# 0.6 X10e3 (0-1.0); MONOCYTE% 10.1 % (3.0-12.0); NEUTROPHIL# 4.6 X10e3 (1.5-7.1); NEUTROPHIL% 72.4 % (40-75); PLATELET COUNT 152 X10e3 (140-420); RED BLOOD COUNT 2.69 X10e (3.90-5.30); RED CELL DISTRIBUTION WIDTH 19.4 % (11.0-15.5); WHITE BLOOD COUNT 6.3 X10e3 (4.0-10.5)
[2017-04-27 16:30] LABS: DIFF IND NO
[2017-04-27 16:31] LABS: POC - CKMB <1.0 ng/mL (0.0-7.9); POC - TROPONIN <0.05 ng/mL (<=0.05)
[2017-04-27 16:31] LABS: CULTURE INDICATED? YES; URINE BACTERIA AUWI 2+ (NEGATIVE); URINE SQUAMOUS EPITHELIAL CELL OCC /[HPF]; UWBCS1 AUWI 100-200 (0-5)
[2017-04-27 16:45] LABS: ALBUMIN SERUM 3.8 g/dL (3.5-5.0); BILIRUBIN, DIRECT 0.1 mg/dL (0.0-0.2); BILIRUBIN,INDIRECT 0.6 mg/dL (0.0-0.9); BILIRUBIN,TOTAL 0.7 mg/dL (0.2-2.0); BUN/CREATININE RATIO 4.15; CALCIUM SERUM 8.4 mg/dL (8.4-10.2); CREATININE SERUM 8.9 mg/dL (0.6-1.4); POTASSIUM 3.6 mmol/L (3.5-5.1); PROTEIN TOTAL SERUM 7.5 g/dL (6.0-8.3)
[2017-04-27] MEDS ORDERED: KLONOPIN1 MG PO (17:03)
[2017-04-27] MEDS ORDERED: PATIENT'S PHARMACY (17:03)
[2017-04-27] MEDS ORDERED: REGLAN PO (17:04)
[2017-04-27] MEDS ORDERED: HYDROCODON-ACE1 EAC9 PO (17:04)
[2017-04-27] MEDS ORDERED: PAXIL PO (17:04)
[2017-04-27] MEDS ORDERED: HYDRALAZINE HC100 MG PO (17:04)
[2017-04-27] MEDS ORDERED: COREG12.5 MG PO (17:04)
[2017-04-27] MEDS ORDERED: PHENERGAN PO (17:05)
[2017-04-27] MEDS ORDERED: ZYRTEC10 M2 PO (17:05)
[2017-04-27] MEDS ORDERED: CLONIDINE HCL0.1 M1 PO (17:05)
[2017-04-27] MEDS ORDERED: SENSIPAR30 M1 PO (17:05)
[2017-04-27] MEDS ORDERED: PRILOSEC PO (17:05)
[2017-04-27 19:06] LABS: MAGNESIUM 1.9 mg/dL (1.6-3.0); PHOSPHOROUS 5.1 mg/dL (2.5-4.6)
[2017-04-28 17:51] LABS: HEMATOCRIT 31.2 % (35.0-45.0); HEMOGLOBIN 9.9 gm/dL (12.0-16.0); MEAN CELL VOLUME 100.3 FL (83-96); MEAN CORPUSCULAR HGB CONC 31.9 g/dL (30-36); MEAN PLATELET VOLUME 8.8 FL (6.5-11.5); RED BLOOD COUNT 3.11 X10e (3.90-5.30); RED CELL DISTRIBUTION WIDTH 19.1 % (11.0-15.5); WHITE BLOOD COUNT 7.4 X10e3 (4.0-10.5)
[2017-04-28 18:28] LABS: ALBUMIN SERUM 3.8 g/dL (3.5-5.0); BILIRUBIN,TOTAL 0.8 mg/dL (0.2-2.0); BUN/CREATININE RATIO 2.85; CALCIUM SERUM 8.8 mg/dL (8.4-10.2); CREATININE SERUM 4.9 mg/dL (0.6-1.4); GLOM FILT RATE Estimated 10.2 mL/min (>60); PHOSPHOROUS 3.9 mg/dL (2.5-4.6); POTASSIUM 4.4 mmol/L (3.5-5.1); PROTEIN TOTAL SERUM 8.1 g/dL (6.0-8.3)
[2017-04-28 18:52] LABS: CK TOTAL 33 IU/L (26-140)
[2017-04-29 05:38] LABS: HEMATOCRIT 27.3 % (35.0-45.0); HEMOGLOBIN 8.7 gm/dL (12.0-16.0); MEAN CELL VOLUME 100.6 FL (83-96); MEAN CORPUSCULAR HEMOGLOBIN 32.2 PG (28-34); MEAN PLATELET VOLUME 8.9 FL (6.5-11.5); RED BLOOD COUNT 2.71 X10e (3.90-5.30); WHITE BLOOD COUNT 5.5 X10e3 (4.0-10.5)
[2017-04-29 06:45] LABS: BUN/CREATININE RATIO 2.81; CALCIUM SERUM 8.2 mg/dL (8.4-10.2); GLOM FILT RATE Estimated 7.4 mL/min (>60); POTASSIUM 3.8 mmol/L (3.5-5.1)
[2017-04-29 06:48] LABS: CREATININE SERUM 6.4 mg/dL (0.6-1.4)
[2017-05-01 18:30] LABS: URINE APPEARANCE TURBID; URINE BILIRUBIN NEG (NEG); URINE BLOOD 1+ (NEG); URINE COLOR YELLOW; URINE GLUCOSE NEG (NEG); URINE KETONE NEG (NEG); URINE LEUKOCYTE ESTERASE 3+ (NEG); URINE NITRATE NEG (NEG); URINE PROTEIN 2+ (NEG); URINE SPECIFIC GRAVITY 1.012 (1.003-1.035); URINE UROBILINOGEN 0.2 MG/DL (NEG)
[2017-05-01 18:32] LABS: URINE BACTERIA AUWI NEG (NEGATIVE); URINE SQUAMOUS EPITHELIAL CELL MANY /[HPF]; UWBCS1 AUWI INNUM (0-5)
[2017-05-02 09:28] LABS: BASOPHIL% 0.8 % (0-2.5); EOSINOPHIL# 0.1 X10e3 (0-0.7); EOSINOPHIL% 1.3 % (0.0-7.0); LYMPHOCYTE# 1.3 X10e3 (1.0-3.5); LYMPHOCYTE% 21.7 % (17.0-45.0); MEAN CELL VOLUME 99.7 FL (83-96); MEAN CORPUSCULAR HEMOGLOBIN 32.2 PG (28-34); MEAN CORPUSCULAR HGB CONC 32.3 g/dL (30-36); MONOCYTE# 0.5 X10e3 (0-1.0); MONOCYTE% 8.6 % (3.0-12.0); NEUTROPHIL% 67.6 % (40-75); PLATELET COUNT 168 X10e3 (140-420); RED BLOOD COUNT 3.11 X10e (3.90-5.30); RED CELL DISTRIBUTION WIDTH 19.4 % (11.0-15.5)
[2017-05-02 09:30] LABS: DIFF IND NO
[2017-05-02 09:56] LABS: BUN/CREATININE RATIO 4.38; CALCIUM SERUM 8.7 mg/dL (8.4-10.2); CREATININE SERUM 8.9 mg/dL (0.6-1.4); POTASSIUM 4.6 mmol/L (3.5-5.1)
[2017-05-03] MEDS ORDERED: ASPIRIN81 MG PO (11:06)
[2017-05-03] MEDS ORDERED: LISINOPRIL5 MG PO (11:06)
== END 2017-05-03 13:00 | disposition home or self-care (01) | DRG 314 ==
LOC: CED 14:52 → CEDOF 18:20 → CED 18:20 → C3A PCU 18:20 → CED 19:14 → CEDOF 19:14 → C3A PCU 20:02 → CEDOF 04-29 14:30 → C3A PCU 05-03 13:00
PROVIDERS: Emergency Medicine; Family Medicine; Internal Medicine
PROC: 5A1D60Z (ICD-10-PCS; principal; 2017-04-30)
DX: I31.9 Disease of pericardium, unspecified (principal); N18.6 End stage renal disease; I13.2 Hypertensive heart and chronic kidney disease with heart failure and with stage 5 chronic kidney disease, or end stage renal disease; N39.0 Urinary tract infection, site not specified; I50.32 Chronic diastolic (congestive) heart failure; R07.89 Other chest pain; Z99.2 Dependence on renal dialysis; Z91.15 Patient's noncompliance with renal dialysis; K21.9 Gastro-esophageal reflux disease without esophagitis; G43.909 Migraine, unspecified, not intractable, without status migrainosus; Z86.711 Personal history of pulmonary embolism; Z90.49 Acquired absence of other specified parts of digestive tract; Z90.710 Acquired absence of both cervix and uterus; Z72.0 Tobacco use; Z88.2 Allergy status to sulfonamides; B95.2 Enterococcus as the cause of diseases classified elsewhere; M94.0 Chondrocostal junction syndrome [Tietze]; D63.1 Anemia in chronic kidney disease; G89.4 Chronic pain syndrome
CPT/HCPCS: 36415; 71010; 72100; 72220; 80048; 80053; 80061; 80076; 81003; 82150; 82550; 82553; 83690; 83735; 84100; 84484; 85025; 85027; 86140; 87040; 87086; 87088; 87186; 93005; 96365; 96375; 99285; C9113; G0257; J1200; J2020; J2185; J2270; J2405; J2543; J2765; Q4081

== ENCOUNTER 2017-05-14 21:41 | Emergency (ER) | payer MEDICARE, OTHER ==
--- NOTE | ~2017-05-14 | CR72 ---
[facility] A Service of [facility] RADIOLOGY TEXT RESULTS PATIENT: ALONDRA HADDAD LOCATION: [facility] : [birth year] UNIT #: [id number] AGE: [address]: Aneta Mello MD SEX: F ORDER DR: [id number] [facility] [address] [place], [place] [address] [id number] E MR#: [id number] Acc #: [id number] NAME: ALONDRA HADDAD : 1975 SEX: F STUDY DATE/TIME: 05/14/2017 22:57 UNIT: [facility] ROOM: STUDY DESCRIPTION: CR Chest Single View Portable Attending Physician: Aneta Mello M.D. Ordering Physician: Aneta Mello M.D. Primary Care Physician: Primary Care Physician No MEDICAL IMAGING REPORT This report is preliminary unless electronic signature is present EXAM Portable chest, 05/14 at 22:57 INDICATION Chest pain and shortness of air today. FINDINGS AP portable chest is compared with 05/12/2017. Cardiomegaly is stable. There is some central vascular congestion. There has been no change in atelectasis in the bases. No pneumothorax. Upper thoracic scoliosis also stable. Dictated by... Young Wilson Jr., M.D. THIS IS AN ELECTRONICALLY VERIFIED REPORT Young Wilson Jr., M.D. at 05/15/2017 8:13 PM REZA/phi TD: 05/15/2017 11:35 JOB #: [id number] MEDICAL IMAGING REPORT Page 1 of 1 COPY
--- NOTE | ~2017-05-14 | CT4 ---
[facility] A Service of [facility] RADIOLOGY TEXT RESULTS PATIENT: ALONDRA HADDAD LOCATION: [facility] : 77 UNIT #: [id number] AGE: [address]: Aneta Mello MD SEX: F ORDER DR: [id number] [facility] [address] [place], [place] [address] [id number] E MR#: [id number] Acc #: [id number] NAME: ALONDRA HADDAD : 1975 SEX: F STUDY DATE/TIME: 05/15/2017 00:52 UNIT: [facility] ROOM: STUDY DESCRIPTION: CT Abd and Pelv Wo Cont Attending Physician: Aneta Mello M.D. Ordering Physician: Aneta Mello M.D. Primary Care Physician: No Primary Care Physician MEDICAL IMAGING REPORT This report is preliminary unless electronic signature is present EXAM Abdomen and pelvis CT 05/15 at 0052. INDICATIONS Chest pain, right arm numbness, left arm pain. Mid abdominal pain, nausea and vomiting. Symptoms started today. TECHNIQUE Axial noncontrast images were obtained through the abdomen and pelvis. Multiplanar reformats were obtained. This CT exam was performed with one or more of the following radiation dose reduction techniques: Automatic exposure control, adjustment of mA and/or kV according to patient size, and iterative reconstruction. COMPARISON Comparison made with 02/25/2017. FINDINGS Abdomen: The heart remains enlarged. Small pericardial effusion is present. May be minimally larger. There is some atelectasis in the bases, slightly improved. Gallbladder surgically absent. The kidneys are atrophic. They are unchanged in appearance. They are nonobstructed. Unenhanced solid organs are otherwise within normal limits. Moderate stool volume in the colon suggests constipation. No bowel obstruction. No free fluid. Pelvis: The bladder is normal There are no lower ureteral stones. Uterus is surgically absent. Moderate stool volume in the colon is present compatible with constipation. Distal small bowel unremarkable. Redemonstrated is lumbar scoliosis. IMPRESSION 1. Stable cardiomegaly. Persistent small pericardial effusion, probably [facility] A Service of [facility] RADIOLOGY TEXT RESULTS PATIENT: ALONDRA HADDAD LOCATION: [facility] : 77 UNIT #: [id number] AGE: [address]: Aneta Mello MD SEX: F ORDER DR: minimally larger from the prior study. Atelectasis in both lung bases is slightly improved. 2. Moderate stool volume throughout the colon compatible with constipation. No bowel obstruction. 3. Stable appearance of both atrophic kidneys. 4. Cholecystectomy and hysterectomy. Dictated by... Young Wilson Jr., M.D. THIS IS AN ELECTRONICALLY VERIFIED REPORT Young Wilson Jr., M.D. at 05/15/2017 8:14 PM REZA/fe TD: 05/15/2017 11:47 JOB #: [id number] MEDICAL IMAGING REPORT Page 1 of 1 COPY
--- NOTE | ~2017-05-14 | EKG ---
PATIENT: ALNODRA HADDAD UNIT #: [id number] Ventricular Rate: 73 BPM Atrial Rate: 73 BPM P-R Interval: 144 ms QRS Duration: 102 ms Q-T Interval: 444 ms QTC Calculation(Bezet): 489 ms P [place]: 40 degrees Calculated R [place]: 4 degrees Calculated T [place]: 89 degrees Diagnosis Line: Normal sinus rhythm Diagnosis Line: Nonspecific ST and T wave abnormality Diagnosis Line: Prolonged QT Diagnosis Line: Abnormal ECG Diagnosis Line: Diagnosis Line: Confirmed by COREY LAWTON MD ([id number]) on Diagnosis Line: 05/15/2017 5:09:07 PM INTERPRETING MD: LEIGHANN REMY
--- NOTE | ~2017-05-14 | NM69 ---
[facility] A Service of [facility] & [facility] RADIOLOGY TEXT RESULTS PATIENT: ALONDRA HADDAD LOCATION: [facility] : [birth year] UNIT #: [id number] AGE: [address]: Aneta Mello MD SEX: F ORDER DR: [id number] [facility] [address] [place], [place] [address] [id number] E MR#: [id number] Acc #: [id number] NAME: ALONDRA HADDAD : 1975 SEX: F STUDY DATE/TIME: 05/15/2017 03:12 UNIT: [facility] ROOM: STUDY DESCRIPTION: NM Pulm Vent and Perf Attending Physician: Aneta Mello M.D. Ordering Physician: Aneta Mello M.D. Primary Care Physician: Primary Care Physician No MEDICAL IMAGING REPORT This report is preliminary unless electronic signature is present EXAM VQ scan, 05/15 at 03:12 INDICATION Shortness of air and chest pain since early yesterday morning. History of cardiomyopathy. FINDINGS The ventilation images were obtained after the administration of 27 mCi of technetium 99m-DTPA aerosol. Corresponding perfusion images were obtained after the IV administration of 4.0 mCi of technetium 99m-MAA. Comparison is made with chest x-ray from 05/14/2017 at 22:57 hours. Ventilation perfusion tracer deposition in the lungs is fairly homogeneous. No VQ mismatches are seen. There are no segmental perfusion defects. Study is low probability for pulmonary embolism. IMPRESSION Low probability for pulmonary embolism. Dictated by... Young Wilson Jr., M.D. THIS IS AN ELECTRONICALLY VERIFIED REPORT Young Wilson Jr., M.D. at 05/15/2017 8:15 PM REZA/phi TD: 05/15/2017 12:03 JOB #: [id number] MEDICAL IMAGING REPORT Page 1 of 1 COPY
[~2017-05-14 21:41] MED LIST changes: +ASPIRIN81 MG PO; +CLONIDINE HCL0.1 M1 PO; +COREG12.5 MG PO; +HYDROCODON-ACE1 EAC9 PO; +LISINOPRIL5 MG PO; +PATIENT'S PHARMACY; +PAXIL PO; +PHENERGAN PO; +PRILOSEC PO; +REGLAN PO; +ZYRTEC10 M2 PO
[2017-05-14 23:20] LABS: POC - CKMB <1.0 ng/mL (0.0-7.9); POC - TROPONIN <0.05 ng/mL (<=0.05)
[2017-05-14 23:44] LABS: BASOPHIL# 0.1 X10e3 (0-0.3); BASOPHIL% 0.9 % (0-2.5); EOSINOPHIL# 0.1 X10e3 (0-0.7); EOSINOPHIL% 1.3 % (0.0-7.0); HEMATOCRIT 24.7 % (35.0-45.0); HEMOGLOBIN 8.4 gm/dL (12.0-16.0); LYMPHOCYTE# 1.5 X10e3 (1.0-3.5); LYMPHOCYTE% 20.9 % (17.0-45.0); MEAN CELL VOLUME 100.9 FL (83-96); MEAN CORPUSCULAR HEMOGLOBIN 34.2 PG (28-34); MEAN CORPUSCULAR HGB CONC 33.9 g/dL (30-36); MEAN PLATELET VOLUME 9.2 FL (6.5-11.5); MONOCYTE# 0.4 X10e3 (0-1.0); MONOCYTE% 6.1 % (3.0-12.0); NEUTROPHIL# 5.1 X10e3 (1.5-7.1); NEUTROPHIL% 70.8 % (40-75); PLATELET COUNT 152 X10e3 (140-420); RED BLOOD COUNT 2.44 X10e (3.90-5.30); WHITE BLOOD COUNT 7.2 X10e3 (4.0-10.5)
[2017-05-14 23:47] LABS: DIFF IND NO
[2017-05-15 00:11] LABS: ALBUMIN SERUM 3.6 g/dL (3.5-5.0); BILIRUBIN, DIRECT 0.2 mg/dL (0.0-0.2); BILIRUBIN,INDIRECT 0.6 mg/dL (0.0-0.9); BILIRUBIN,TOTAL 0.8 mg/dL (0.2-2.0); BUN/CREATININE RATIO 5.85; CALCIUM SERUM 7.6 mg/dL (8.4-10.2); GLOM FILT RATE Estimated 2.9 mL/min (>60); MAGNESIUM 2.3 mg/dL (1.6-3.0); PHOSPHOROUS 5.2 mg/dL (2.5-4.6); PROTEIN TOTAL SERUM 6.9 g/dL (6.0-8.3)
[2017-05-15 00:12] LABS: POTASSIUM 5.6 mmol/L (3.5-5.1)
[2017-05-15 01:55] LABS: PARTIAL THROMBOPLASTIN TIME 26.1 SECONDS (23.5-31.3); PROTHROMBIN TIME (PATIENT) 10.9 SECONDS (10.0-11.7)
[2017-05-15 01:57] LABS: URINE SOURCE CATH
[2017-05-15 02:08] LABS: URINE APPEARANCE TURBID; URINE BILIRUBIN NEG (NEG); URINE BLOOD 1+ (NEG); URINE COLOR YELLOW; URINE GLUCOSE NEG (NEG); URINE KETONE NEG (NEG); URINE LEUKOCYTE ESTERASE 3+ (NEG); URINE NITRATE NEG (NEG); URINE PROTEIN 2+ (NEG); URINE UROBILINOGEN 0.2 MG/DL (NEG)
[2017-05-15 02:09] LABS: CULTURE INDICATED? YES; URINE BACTERIA AUWI 3+ (NEGATIVE); URINE SQUAMOUS EPITHELIAL CELL OCC /[HPF]; UWBCS1 AUWI INNUM (0-5)
== END 2017-05-15 05:12 | disposition home or self-care (01) ==
LOC: CED 21:41
PROVIDERS: Emergency Medicine
DX: R07.9 Chest pain, unspecified (principal); R10.84 Generalized abdominal pain; G89.29 Other chronic pain; K21.9 Gastro-esophageal reflux disease without esophagitis; I10 Essential (primary) hypertension; G43.909 Migraine, unspecified, not intractable, without status migrainosus; F17.210 Nicotine dependence, cigarettes, uncomplicated; Z90.89 Acquired absence of other organs; Z90.710 Acquired absence of both cervix and uterus
CPT/HCPCS: 36415; 51702; 71010; 74176; 78582; 80048; 80076; 81003; 82553; 83735; 84100; 84484; 85025; 85610; 85730; 87086; 87088; 87186; 93005; 96374; 99285; A9540; A9567; J1200